=== PATIENT | female | born 1940 | race Caucasian/White ===

== ENCOUNTER → 2020-07-16 13:42 | Outpatient (BNVA) | payer MEDICARE, OTHER, SELFPAY | PROVIDERS: PCP Internal Medicine; Visit Provider Internal Medicine Cardiovascular Disease | DX: R06.02 Shortness of breath (principal); I95.1 Orthostatic hypotension; I36.1 Nonrheumatic tricuspid (valve) insufficiency; Z79.899 Other long term (current) drug therapy | CPT/HCPCS: 99212 ==

== ENCOUNTER → 2020-08-01 10:24 | Outpatient (REF) | payer MEDICARE, OTHER, SELFPAY ==
--- NOTE | 2020-08-01 10:27 | CA_ITS ---
Transthoracic Echocardiogram Patient (Last, First, Middle): Antonina Kaur, Gender: Female Date of : 1940 Age: 79 Procedure Date: 08/01/2020 Procedure Type: Transthoracic Echocardiogram Location: OP Height: 154.94 cm Weight: 51.26 kg BSA: 1.48 m2 Heart Rate: bpm BP: 157 / 72 mmHg Staff Attorney: JAI Referring MD: Benson Rodriguez MD Symptoms: I36.1 - Nonrheumatic tricuspid (valve) insufficiency Study Quality: Good ECG Rhythm: Sinus Conclusions: - The left ventricular systolic function is normal. The visually estimated ejection fraction is between 65-70%. - There is moderate tricuspid valve regurgitation. - There is moderate tricuspid valve regurgitation. Possible leaflet prolapse (non-septal). Findings Left Ventricle Normal left ventricular cavity size. There is normal left ventricular wall thickness. The left ventricular systolic function is normal. The visually estimated ejection fraction is between 65-70%. The calculated ejection fraction is 68% by biplane method. There is no evidence of regional wall motion abnormalities. Diastolic function is normal for age. Right Ventricle Normal right ventricular cavity size and systolic function. Atria The left atrium is normal in size. The right atrium is normal in size. Aortic Valve There is a normal trileaflet aortic valve. There is no aortic valve stenosis. There is no aortic valve regurgitation. Mitral Valve The mitral valve appears normal. There is mild mitral valve regurgitation. There is no mitral valve stenosis. Pulmonic Valve The pulmonic valve was not well visualized. Tricuspid Valve There is moderate tricuspid valve regurgitation. The right ventricular systolic pressure is 35 mmHg. Possible leaflet prolapse (non-septal). Top normal pulmonary artery pressure. Great Vessels The aortic annulus, sinuses of valsalva, and asc aorta are normal in size. Venous The inferior vena cava is normal in size and collapses greater than 50% with inspiration. Pericardium/Pleural There is no evidence of pericardial effusion. Prior Study Comparison No significant change compared to prior study dated: 12/12/2019. Measurements 2D Linear Measurements IVSd: 0.95 0.6-0.9/0.6-1.0 cm LVIDd: 3.38 3.9-5.3/4.2-5.9 cm LVIDd Index: 2.28 2.4-3.2/2.2-3.1 cm/m2 LVIDs: 2.12 2.0-3.6 cm LVPWd: 0.97 0.7-1.1 cm Ao Root: 2.70 2.1-3.5 cm LA Diam: 2.90 2.7-3.8/3.0-4.0 cm LAIDs Index: 1.96 1.5-2.3 cm/m2 LV Mass: 114.50 67-162/88-224 g LV Mass Index: 77.36 43-95/49-115 g/m2 LVOT Diam: 1.90 3.0+(-)1.3 cm 2D Systolic Function EF 4C: 69.50 >55% EF 2C: 65.90 >55% EF BiP: 68.00 >55% Mitral Valve MV Pk E: 0.74 MV PK A: 0.87 MV Decel Time: 211.00 E/A: 0.80 E'Lateral: 7.93 E'Medial: 5.32 E/E' Med: 13.90 E/E' Lat: 9.30 Aortic Valve AoV Pk Laith: 1.27 AoV Mn Laith: 0.93 AoV VTI: 0.30 AoV Pk Grad: 6.00 Aov Mn Grad: 4.00 ANNELISE Cont.VTI: 2.04 LVOT LVOT Pk Laith: 0.92 LVOT Mn Laith: 0.66 LVOT VTI: 0.22 LVOT Pk Grad: 3.00 LVOT Mn Grad: 2.00 LVOT Diam: 1.90 LVOT Area: 2.84 Diastolic Function MV Pk E: 0.74 MV Pk A: 0.87 E/A: 0.80 E'Medial: 5.32 E/E' Med: 13.90 E' Laterial: 7.93 E/E' Lat: 9.30 Tricuspid Valve TR Pk Laith: 2.84 TR Pk Grad: 32.00 RA Press: 3.00 RVSP: 35.00 Great Vessels Aorta Ao Root-2D: 2.70 2.0-3.7 cm Ao Asc: 2.40 2.1-3.4 cm Ao Arch: 2.50 Updated in Other Vendor System with Status of Final Prince Gabriel MD electronically signed on 08/03/2020 12:18:57 PM with status of Final
== END ==
LOC: HO.CARD 10:24
PROVIDERS: PCP Internal Medicine; Visit Provider Internal Medicine Cardiovascular Disease
DX: I36.1 Nonrheumatic tricuspid (valve) insufficiency (principal)
CPT/HCPCS: 93306

== ENCOUNTER → 2020-08-27 13:23 | Outpatient (BNVA) | payer MEDICARE, OTHER, SELFPAY | PROVIDERS: PCP Internal Medicine; Visit Provider Internal Medicine Cardiovascular Disease | DX: I16.0 Hypertensive urgency (principal); I95.1 Orthostatic hypotension; I36.1 Nonrheumatic tricuspid (valve) insufficiency; Z79.899 Other long term (current) drug therapy | CPT/HCPCS: 99212 ==

== ENCOUNTER 2020-08-27 14:09 | Emergency (ER) | payer MEDICARE, OTHER, SELFPAY ==
--- NOTE | ~2020-08-27 | CT_ITS ---
EXAMINATION: CT HEAD WITHOUT CONTRAST CLINICAL INFORMATION: Elevated hypertension with headache COMPARISON: CT brain 01/21/2020 TECHNIQUE: Contiguous axial imaging was performed from the skull base to vertex without intravenous administration of contrast. This CT examination was performed using dose optimization techniques as appropriate, variously including the following: *Automated exposure control *Adjustment of mA and/or kV according to patient size (this includes techniques or standardized protocols for targeted exams where dose is matched to indication/reason for exam; i.e. extremities or head) *Use of iterative reconstruction technique DLP: 547 mGy-cm FINDINGS: There is no evidence of acute intracranial hemorrhage or territorial infarction. No abnormal mass effect or midline shift is seen. Bruno to white matter differentiation is well preserved. No extra-axial fluid collections are identified. The lateral ventricles are symmetrical but enlarged. The bruno to white matter differentiation is maintained normal. The osseous structures and soft tissues are normal. The mastoid air cells and visualized portions of the paranasal sinuses are well aerated. CT/CT head/brain wo con IMPRESSION: No acute intracranial process seen. Moderate cerebral volume loss.
[2020-08-27 14:18] VITALS: BP 208/67; PULSE 81; RESP 18; TEMP 36.8; O2SAT 97; BMI 21.3
[2020-08-27 15:48] VITALS: BP 209/80; PULSE 85; RESP 18; O2SAT 99
[2020-08-27 18:38] VITALS: BP 222/107; PULSE 77; RESP 16; O2SAT 96
--- NOTE | 2020-08-27 18:38 | ED_ITS ---
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 losartan and atenolol which she takes around 17:00 patient was seen at the database development project manager's office as 15:00 for routine follow-up noticed to have blood pressure of 220/98 patient feels slightly heavy in her head denies any chest pain or shortness of breath Related Data Home Medications Medication Instructions Recorded Confirmed alendronate 70 mg tablet 0 mg PO DIRECTED 07/16/20 08/27/20 atenolol 50 mg tablet 50 mg PO DAILY 07/16/20 08/27/20 cholecalciferol (vitamin D3) 25 25 mcg PO DAILY 07/16/20 08/27/20 mcg (1,000 unit) tablet [id number] 1 cap PO BID 07/16/20 08/27/20 12,000-38,000-60,000 unit capsule,delayed rel losartan 100 mg tablet 100 mg PO DAILY 07/16/20 08/27/20 salsalate 500 mg tablet 1,000 mg PO BID 07/16/20 08/27/20 Previous Rx's Medication Instructions Recorded amlodipine 2.5 mg tablet 2.5 mg PO DAILY #30 tab 07/16/20 Allergies Allergy/AdvReac Type Severity Reaction Status Date / Time sulfasalazine Allergy Unknown ? RXN - ? Verified 08/27/20 14:17 [From AZULFIDINE] AFFECTED WBCS Review of Systems Review of Systems: Constitutional : No Weight loss, No Fever, No Chills ENT/Mouth : No sore throat, No Rhinorrhea Eyes: No Eye Pain, No Swelling Cardiovascular : No Chest Pain, no palpitations Respiratory : No Cough, No Sputum, no shortness of breath Gastrointestinal : no Nausea, No Vomiting, No Diarrhea, No abdominal Pain, no black stools Genitourinary : No Dysuria, No Urinary Frequency Musculoskeletal : No joint pain, No Myalgias, No Joint Swelling Skin : No Skin Lesions, No rash Neuro : No Weakness, No Numbness, No Dizziness, + Headache Psych : No Anxiety/Panic, No Depression Heme/Lymph: No Bruising, No Lymphadenopathy Endocrine : No Polyuria, No Polydipsia All other systems reviewed and are negative [facility] Past Medical History Medical History Orthostatic hypotension dysautonomic syndrome Tricuspid valve regurgitation, nonrheumatic Surgical History Hx of cardiac cath Family History Family History Father CVD (cardiovascular disease) Mother CVD (cardiovascular disease) Social History Social History Advance Directives: Yes Advance Directives Information Provided: No Advance Directives on File: No Physical Exam Vital Signs: Vital Signs: Last Vital Signs Temp 98.2 F 08/27/20 14:18 Pulse 79 08/27/20 18:56 Resp 16 08/27/20 18:38 BP 220/77 H 08/27/20 18:56 Pulse Ox 96 08/27/20 18:38 Body Mass Index 21.3 Appearance: Alert. Oriented X3. No acute distress. Eyes: PERRLA, No Nystagmus ENT: Pharynx normal. Oral Mucosa moist Neck: Normal inspection. Neck supple. CVS: Normal heart rate and rhythm. Pulses normal. Respiratory: No respiratory distress. Equal air entry bilateral, no wheezing/rales/rhonchi Abdomen: Soft and nontender. Bowel sounds are present, no mass palpable, no CVA tenderness Skin: Skin warm and dry. Normal skin color. Normal skin turgor. Extremities: No lower extremity edema. No calf tenderness Neuro: Oriented X 3. No motor deficit. No sensory deficit.No cerebellar signs , cranial nerves II-XII intact Medical Decision Making MDM Narrative Medical decision making narrative: Patient with accelerated hypertension with slight headache with history of subarachnoid bleed on arrival patient's blood pressure was 200/100 patient was given her p.m. dose of losartan and metoprolol blood pressure dropped to 160/80 patient is feeling much better now will discharge her home advised to follow with database development project manager and to take extra dose of amlodipine increased blood pressure goes higher than 160/100 Lab Data Lab results reviewed: Yes I reviewed the patient's lab results. Result diagrams: 08/27/20 19:07 08/27/20 20:04 Labs: Lab Results 08/27/20 08/27/20 08/27/20 Range/Units 19:07 20:04 20:04 WBC 7.6 (4.8-10.8) X10*3/uL RBC 4.63 (4.20-5.50) X10*6/uL Hgb 14.2 (12.0-16.0) g/dl Hct 43.6 (37-47) % MCV 94.2 (80-98) fL MCH 30.7 (27.0-33.0) pg MCHC 32.6 (31.0-35.0) g/dl RDW 14.2 (11.0-16.0) % Plt Count 171 (160-400) X10*3/uL MPV 11.4 (9.4-12.3) fL Immature Gran % (Auto) 0.4 (0.0-0.4) % Neut % (Auto) 70.0 (45-73) % Lymph % (Auto) 23.8 (20-40) % [place]row % (Auto) 5.0 (2-11) % Eos % (Auto) 0.4 (0-4) % Baso % (Auto) 0.4 (0-2) % Lymph # (Auto) 1.8 (1.2-4.9) X10*3/uL [place] # (Auto) 0.4 (0.1-1.2) X10*3/uL Eos # (Auto) 0.0 (0.0-0.4) X10*3/uL Baso # (Auto) 0.0 (0.0-0.2) X10*3/uL Abs Immat Gran (auto) 0.03 (0.00-0.03) X10*3/uL Absolute Neuts (auto) 5.3 (2.0-8.3) X10*3/uL Absolute Nucleated RBC 0.000 (0.0-0.012) X10*3/uL Nucleated RBC % (auto) 0.0 (0.0-0.2) /100WBC Sodium 143 (135-145) mmol/L Potassium 4.6 (3.3-5.1) mmol/L Chloride 106 (96-108) mmol/L Carbon Dioxide 26 (22-29) mmol/L Anion Gap 16 (12-20) BUN 15 (9-16) mg/dL Creatinine 0.80 (0.5-1.4) mg/dL Estim Creat Clear Calc 43.7 Estimated GFR > 60 Random Glucose 83 (60-115) mg/dL Calcium 9.6 (8.4-10.2) mg/dL Total Bilirubin 0.5 (0.0-1.0) mg/dL Direct Bilirubin < 0.2 (0.0-0.5) mg/dL AST 25 (5-31) U/L ALT 11 (0-31) U/L Alkaline Phosphatase 48 (39-117) U/L Total Protein 7.0 (6.5-8.0) g/dL Albumin 3.9 (3.5-5.0) g/dL ECG Data Attestation: I personally reviewed and interpreted this ECG as follows: Interpretation: Normal sinus rhythm heart rate 69 beats per minute normal intervals and axis poor progression of R-wave anterior leads T inversion in lateral leads. No significant acute ischemic changes. Discharge Plan Discharge Clinical Impression: Accelerated essential hypertension Patient Disposition: Home, Self-Care Instructions: Hypertension (ED) Additional Instructions: Rest at home. Check blood pressure if it is higher than 160/100 take extra dose of amlodipine 2.5 mg and follow up with your database development project manager Prescriptions: No Action losartan 100 mg tablet 100 mg PO DAILY RF: 0 salsalate 500 mg tablet 1,000 mg PO BID RF: 0 cholecalciferol (vitamin D3) 25 mcg (1,000 unit) tablet 25 mcg PO DAILY RF: 0 atenolol 50 mg tablet 50 mg PO DAILY RF: 0 alendronate 70 mg tablet 0 mg PO DIRECTED RF: 0 Creon 12,000-38,000 -60,000 unit capsule,delayed release(DR/EC) 1 cap PO BID RF: 0 amlodipine [Norvasc] 2.5 mg tablet 2.5 mg PO DAILY Qty: 30 RF: 3
--- NOTE | 2020-08-27 18:39 | ECG_ITS ---
Test Reason : HTN Blood Pressure : / mmHG Vent. Rate : 069 BPM Atrial Rate : 069 BPM P-R Int : 192 ms QRS Dur : 076 ms QT Int : 384 ms P-R-T Axes : 063 052 018 degrees QTc Int : 411 ms Normal sinus rhythm Septal infarct , age undetermined T wave abnormality, consider lateral ischemia Abnormal ECG When compared with ECG of 21-JAN-2020 12:55, Premature supraventricular complexes are no longer Present Referred By: Gaurav Ruth Electronically Signed By:JORGE CALDWELL
[2020-08-27 18:55] VITALS: BP 220/77; PULSE 76
[2020-08-27] MEDS: Metoprolol Tartrate 50 MG TABLET PO (18:55)
[2020-08-27 18:56] VITALS: BP 220/77; PULSE 79
[2020-08-27] MEDS: Losartan Potassium 50 MG TABLET 100 MG PO (18:56)
--- NOTE | 2020-08-27 19:06 | PC.NURSE ---
Antonina Thao, daughter, HCP can be reached at [phone] for updating the plan of care.
[2020-08-27 19:13] LABS: MANUAL DIFF FLAG NO
[2020-08-27 19:16] LABS: Basophils Percent Auto 0.4 % (0-2); Eosinophils Percent Auto 0.4 % (0-4); Hematocrit 43.6 % (37-47); Hemoglobin 14.2 g/dl (12.0-16.0); Imm Gran Abs Auto 0.03 X10*3/uL (0.00-0.03); Imm Gran Pct Auto 0.4 % (0.0-0.4); Lymphocytes Absolute Auto 1.8 X10*3/uL (1.2-4.9); Lymphocytes Percent Auto 23.8 % (20-40); Mean Corpuscular HGB Conc 32.6 g/dl (31.0-35.0); Mean Corpuscular Hemoglobin 30.7 pg (27.0-33.0); Mean Corpuscular Volume 94.2 fL (80-98); Mean Platelet Volume 11.4 fL (9.4-12.3); Monocytes Absolute Auto 0.4 X10*3/uL (0.1-1.2); Neutrophils Absolute Auto 5.3 X10*3/uL (2.0-8.3); Platelet Count 171 X10*3/uL (160-400); Red Blood Count 4.63 X10*6/uL (4.20-5.50); Red Cell Distribution Width 14.2 % (11.0-16.0); White Blood Count 7.6 X10*3/uL (4.8-10.8)
[2020-08-27 20:32] LABS: Anion Gap 16 (12-20); Blood Urea Nitrogen 15 mg/dL (9-16); Calcium 9.6 mg/dL (8.4-10.2); Carbon Dioxide 26 mmol/L (22-29); Chloride 106 mmol/L (96-108); Creatinine Clr Calc Pharmacy 43.7; Estimated Glomerular Filt Rate > 60; Glucose Random 83 mg/dL (60-115); Potassium 4.6 mmol/L (3.3-5.1); Sodium 143 mmol/L (135-145)
[2020-08-27 20:39] LABS: Alanine Aminotransferase 11 U/L (0-31); Albumin Level 3.9 g/dL (3.5-5.0); Alkaline Phosphatase 48 U/L (39-117); Aspartate Amino Transferase 25 U/L (5-31); Bilirubin Direct < 0.2 mg/dL (0.0-0.5); Bilirubin Total 0.5 mg/dL (0.0-1.0)
[2020-08-27 21:01] VITALS: BP 161/96; PULSE 64; RESP 15; TEMP 36.8; O2SAT 97
== END 2020-08-27 21:08 | disposition home or self-care (01) ==
PROVIDERS: Emergency Provider Internal Medicine; PCP Internal Medicine
DX: I10 Essential (primary) hypertension (principal)
CPT/HCPCS: 36415; 70450; 80048; 80076; 85025; 93005; 99284

== ENCOUNTER → 2020-09-26 13:06 | Outpatient (BNVA) | payer MEDICARE, OTHER, SELFPAY | PROVIDERS: PCP Internal Medicine; Visit Provider Internal Medicine Cardiovascular Disease | DX: I95.1 Orthostatic hypotension (principal); I36.1 Nonrheumatic tricuspid (valve) insufficiency | CPT/HCPCS: 99212 ==

== ENCOUNTER → 2020-10-24 14:20 | Outpatient (BNVA) | payer MEDICARE, OTHER, SELFPAY | PROVIDERS: PCP Internal Medicine; Referring Provider Internal Medicine; Visit Provider Internal Medicine Cardiovascular Disease | DX: I95.1 Orthostatic hypotension (principal); I36.1 Nonrheumatic tricuspid (valve) insufficiency | CPT/HCPCS: 99212 ==

== ENCOUNTER → 2021-01-22 09:54 | Outpatient (BNVA) | payer MEDICARE, OTHER, SELFPAY | PROVIDERS: PCP Internal Medicine; Referring Provider Internal Medicine; Visit Provider Internal Medicine Cardiovascular Disease | DX: I95.1 Orthostatic hypotension (principal); I36.1 Nonrheumatic tricuspid (valve) insufficiency | CPT/HCPCS: 99212 ==

== ENCOUNTER 2021-05-06 10:10 | Outpatient (REF) | payer MEDICARE, OTHER, SELFPAY ==
[2021-05-06 14:42] LABS: Alanine Aminotransferase 15 U/L (0-31); Albumin Level 3.6 g/dL (3.5-5.0); Alkaline Phosphatase 51 U/L (39-117); Anion Gap 12 (12-20); Aspartate Amino Transferase 19 U/L (5-31); Bilirubin Total 0.3 mg/dL (0.0-1.0); Blood Urea Nitrogen 20 mg/dL (9-16); Calcium 9.2 mg/dL (8.4-10.2); Carbon Dioxide 28 mmol/L (22-29); Chloride 105 mmol/L (96-108); Cholesterol 163 mg/dL; Estimated Glomerular Filt Rate 59; Glucose Fasting 76 mg/dL (60-99); HDL Cholesterol 59 mg/dL; LDL Cholesterol Calculated 94 mg/dl; Potassium 4.1 mmol/L (3.3-5.1); Sodium 141 mmol/L (135-145); Total Protein 6.4 g/dL (6.5-8.0); Triglycerides 52 mg/dL
== END 2021-05-06 10:11 | disposition home or self-care (01) ==
LOC: HO.10HDL 10:10
PROVIDERS: Visit Provider Internal Medicine
DX: E78.00 Pure hypercholesterolemia, unspecified (principal); I10 Essential (primary) hypertension; M06.9 Rheumatoid arthritis, unspecified
CPT/HCPCS: 36415; 80053; 80061

== ENCOUNTER → 2021-06-24 12:49 | Outpatient (REF) | payer MEDICARE, OTHER, SELFPAY ==
--- NOTE | 2021-06-24 12:53 | CA_ITS ---
Transthoracic Echocardiogram Patient (Last, First, Middle): Antonina Kaur, Gender: Female Date of : 1940 Age: 80 Procedure Date: 06/24/2021 Procedure Type: Transthoracic Echocardiogram Location: OP Height: 154.94 cm Weight: 53.07 kg BSA: 1.50 m2 Heart Rate: bpm BP: 190 / 100 mmHg Hand Brim Ironer: LUZ Referring MD: Benson Rodriguez MD Symptoms: I36.1 - Nonrheumatic tricuspid (valve) insufficiency Study Quality: Fair ECG Rhythm: Sinus Conclusions: - The left ventricular systolic function is normal. The visually estimated ejection fraction is between 60-65%. - There is moderate tricuspid valve regurgitation. The tricuspid regurgitation jet is eccentric directed toward the interatrial septum. Findings Left Ventricle Normal left ventricular cavity size. There is normal left ventricular wall thickness. The left ventricular systolic function is normal. The visually estimated ejection fraction is between 60-65%. There is no evidence of regional wall motion abnormalities. E/E prime ratio is between 8 and 15 consistent with indeterminate filling pressures. Evidence suggests grade I (mild) diastolic dysfunction. Right Ventricle Normal right ventricular cavity size and systolic function. Atria Mild biatrial enlargement. Aortic Valve The aortic valve was not well visualized. There is no aortic valve stenosis. There is no aortic valve regurgitation. Mitral Valve The mitral valve appears normal. There is mild mitral valve regurgitation. There is no mitral valve stenosis. Pulmonic Valve The pulmonic valve was not well visualized. There is trace pulmonic valve regurgitation. Tricuspid Valve The tricuspid valve was not well visualized. There is moderate tricuspid valve regurgitation. The tricuspid regurgitation jet is eccentric directed toward the interatrial septum. The pulmonary artery systolic pressure is normal. Great Vessels The aortic annulus, sinuses of valsalva, and asc aorta are normal in size. Venous The inferior vena cava is normal in size and collapses greater than 50% with inspiration. Pericardium/Pleural There is a trivial pericardial effusion. Prior Study Comparison No significant change compared to prior study dated: 12/28/2020. Measurements 2D Linear Measurements IVSd: 1.12 0.6-0.9/0.6-1.0 cm LVIDd: 3.45 3.9-5.3/4.2-5.9 cm LVIDd Index: 2.30 2.4-3.2/2.2-3.1 cm/m2 LVIDs: 2.30 2.0-3.6 cm LVPWd: 1.08 0.7-1.1 cm Ao Root: 2.60 2.1-3.5 cm LA Diam: 3.80 2.7-3.8/3.0-4.0 cm LAIDs Index: 2.53 1.5-2.3 cm/m2 LV Mass: 144.87 67-162/88-224 g LV Mass Index: 96.58 43-95/49-115 g/m2 LVOT Diam: 2.00 3.0+(-)1.3 cm Mitral Valve MV Pk E: 0.58 MV PK A: 0.67 MV Decel Time: 197.00 E/A: 0.90 E'Lateral: 4.90 E'Medial: 5.11 E/E' Med: 11.40 E/E' Lat: 11.90 PHT: 58.00 MVA PHT: 3.79 Decel [place]: 2.96 Aortic Valve AoV Pk Laith: 1.14 AoV Mn Laith: 0.79 AoV VTI: 0.24 AoV Pk Grad: 5.00 Aov Mn Grad: 3.00 ANNELISE Cont.VTI: 2.92 LVOT LVOT Pk Laith: 0.88 LVOT Mn Laith: 0.58 LVOT VTI: 0.23 LVOT Pk Grad: 3.00 LVOT Mn Grad: 2.00 LVOT Diam: 2.00 LVOT Area: 3.14 Diastolic Function MV Pk E: 0.58 MV Pk A: 0.67 E/A: 0.90 E'Medial: 5.11 E/E' Med: 11.40 E' Laterial: 4.90 E/E' Lat: 11.90 Right Ventricle TAPSE (mm): 24.00 TVS' Laith: 11.00 Tricuspid Valve TR Pk Laith: 2.58 TR Pk Grad: 27.00 Great Vessels Aorta Ao Root-2D: 2.60 2.0-3.7 cm Ao Asc: 2.70 2.1-3.4 cm Pulmonary Valve PV Pk Laith: 1.05 Peak PV Grad: 4.00 Updated in Other Vendor System with Status of Final Prince Gabriel MD electronically signed on 06/25/2021 4:21:55 PM with status of Final
== END ==
LOC: HO.CARD 12:49
PROVIDERS: PCP Internal Medicine; Visit Provider Internal Medicine Cardiovascular Disease
DX: I36.1 Nonrheumatic tricuspid (valve) insufficiency (principal)
CPT/HCPCS: 93306

== ENCOUNTER → 2021-07-17 11:10 | Outpatient (BNVA) | payer MEDICARE, OTHER, SELFPAY | PROVIDERS: PCP Internal Medicine; Referring Provider Internal Medicine; Visit Provider Internal Medicine Cardiovascular Disease | DX: Z09 Encounter for follow-up examination after completed treatment for conditions other than malignant neoplasm (principal); I95.1 Orthostatic hypotension; I36.1 Nonrheumatic tricuspid (valve) insufficiency | CPT/HCPCS: 99212 ==

== ENCOUNTER 2021-09-08 09:35 | Outpatient (REF) | payer MEDICARE, OTHER, SELFPAY ==
[2021-09-08 10:20] LABS: MANUAL DIFF FLAG NO
[2021-09-08 10:24] LABS: Basophils Percent Auto 0.6 % (0-2); Eosinophils Absolute Auto 0.2 X10*3/uL (0.0-0.4); Eosinophils Percent Auto 4.9 % (0-4); Hematocrit 37.2 % (37.0-47.0); Imm Gran Abs Auto 0.01 X10*3/uL (0.00-0.03); Imm Gran Pct Auto 0.2 % (0.0-0.4); Lymphocytes Absolute Auto 1.4 X10*3/uL (1.2-4.9); Lymphocytes Percent Auto 28.1 % (20-40); Mean Corpuscular HGB Conc 32.3 g/dl (31.0-35.0); Mean Corpuscular Hemoglobin 30.5 pg (27.0-33.0); Mean Corpuscular Volume 94.4 fL (80.0-98.0); Mean Platelet Volume 12.3 fL (9.4-12.3); Monocytes Absolute Auto 0.4 X10*3/uL (0.1-1.2); Monocytes Percent Auto 8.4 % (2-11); Neutrophils Absolute Auto 2.8 x10*3/uL (2.0-8.3); Neutrophils Percent Auto 57.8 % (45-73); Platelet Count 156 X10*3/uL (160-400); Red Blood Count 3.94 X10*6/uL (4.20-5.50); Red Cell Distribution Width 13.5 % (11.0-16.0); White Blood Count 4.9 X10*3/uL (4.8-10.8)
[2021-09-08 10:38] LABS: Alanine Aminotransferase 18 U/L (0-31); Albumin Level 3.5 g/dL (3.5-5.0); Alkaline Phosphatase 45 U/L (39-117); Anion Gap 12 (12-20); Aspartate Amino Transferase 18 U/L (5-31); Bilirubin Total 0.4 mg/dL (0.0-1.0); Blood Urea Nitrogen 25 mg/dL (9-16); Carbon Dioxide 25 mmol/L (22-29); Chloride 109 mmol/L (96-108); Cholesterol 170 mg/dL; Estimated Glomerular Filt Rate > 60; Glucose Random 87 mg/dL (60-115); HDL Cholesterol 59 mg/dL; LDL Cholesterol Calculated 103 mg/dl; Potassium 4.6 mmol/L (3.3-5.1); Sodium 141 mmol/L (135-145); Total Protein 6.3 g/dL (6.5-8.0); Triglycerides 44 mg/dL
[2021-09-08 11:04] LABS: Thyroid Stimulating Hormone 3.06 uIU/mL (0.32-4.0)
[2021-09-08 11:27] LABS: Vitamin B12 951 pg/mL (200-900)
== END 2021-09-08 09:36 | disposition home or self-care (01) ==
LOC: HO.10HDL 09:35
PROVIDERS: Visit Provider Internal Medicine
DX: E78.00 Pure hypercholesterolemia, unspecified (principal); I10 Essential (primary) hypertension; M06.9 Rheumatoid arthritis, unspecified
CPT/HCPCS: 36415; 80053; 80061; 82607; 84443; 85025

== ENCOUNTER 2022-02-10 10:18 | Outpatient (REF) | payer MEDICARE, OTHER, SELFPAY ==
[2022-02-10 12:12] LABS: Alanine Aminotransferase 17 U/L (0-31); Albumin Level 3.8 g/dL (3.5-5.0); Alkaline Phosphatase 51 U/L (39-117); Anion Gap 16 (12-20); Aspartate Amino Transferase 26 U/L (5-31); Bilirubin Total 0.4 mg/dL (0.0-1.0); Blood Urea Nitrogen 16 mg/dL (9-16); Calcium 8.7 mg/dL (8.4-10.2); Carbon Dioxide 26 mmol/L (22-29); Chloride 105 mmol/L (96-108); Estimated Glomerular Filt Rate > 60; Glucose Fasting 71 mg/dL (60-99); Potassium 4.3 mmol/L (3.3-5.1); Sodium 143 mmol/L (135-145); Total Protein 6.5 g/dL (6.5-8.0)
== END 2022-02-10 10:19 | disposition home or self-care (01) ==
LOC: HO.10HDL 10:18
PROVIDERS: Visit Provider Internal Medicine
DX: E03.9 Hypothyroidism, unspecified (principal); E78.00 Pure hypercholesterolemia, unspecified; I05.1 Rheumatic mitral insufficiency; I10 Essential (primary) hypertension
CPT/HCPCS: 36415; 80053

== ENCOUNTER 2022-04-07 14:26 | Outpatient (REF) | payer MEDICARE, OTHER, SELFPAY ==
[2022-04-07 16:25] LABS: B Type Natriuretic Peptide 255 pg/mL (<100)
[2022-04-07 16:42] LABS: Anion Gap 14 (12-20); Blood Urea Nitrogen 19 mg/dL (9-16); Calcium 9.5 mg/dL (8.4-10.2); Carbon Dioxide 28 mmol/L (22-29); Chloride 105 mmol/L (96-108); Estimated Glomerular Filt Rate > 60; Glucose Random 80 mg/dL (60-115); Potassium 4.6 mmol/L (3.3-5.1); Sodium 142 mmol/L (135-145)
== END 2022-04-07 14:27 | disposition home or self-care (01) ==
LOC: HO.LAB 14:26
PROVIDERS: PCP Internal Medicine; Visit Provider Internal Medicine Cardiovascular Disease
DX: I36.1 Nonrheumatic tricuspid (valve) insufficiency (principal); I95.1 Orthostatic hypotension; R60.0 Localized edema; Z79.899 Other long term (current) drug therapy
CPT/HCPCS: 36415; 80048; 83880; 99212

== ENCOUNTER → 2022-04-10 12:49 | Outpatient (REF) | payer MEDICARE, OTHER, SELFPAY ==
--- NOTE | 2022-04-10 12:53 | CA_ITS ---
Transthoracic Echocardiogram Patient (Last, First, Middle): Antonina Kaur, Gender: Female Date of : 1940 Age: 81 Procedure Date: 04/10/2022 Procedure Type: Transthoracic Echocardiogram Location: OP Height: 154.94 cm Weight: 51.71 kg BSA: 1.49 m2 Heart Rate: bpm BP: 170 / 85 mmHg Pizza Chef: TO Referring MD: Benson Rodriguez MD Symptoms: I36.1 - Nonrheumatic tricuspid (valve) insufficiency Study Quality: Fair ECG Rhythm: Sinus Conclusions: - The left ventricular systolic function is normal. The visually estimated ejection fraction is between 65-70%. - There is moderately increased left ventricular wall thickness. - There is mild to moderate tricuspid valve regurgitation. Findings Left Ventricle Normal left ventricular cavity size. There is moderately increased left ventricular wall thickness. The left ventricular systolic function is normal. The visually estimated ejection fraction is between 65-70%. There is no evidence of regional wall motion abnormalities. Diastolic function is normal for age. Right Ventricle Normal right ventricular cavity size and systolic function. Atria The left atrium is moderately dilated. The right atrium is normal in size. Aortic Valve There is a normal trileaflet aortic valve. There is no aortic valve stenosis. There is no aortic valve regurgitation. Mitral Valve The mitral valve appears normal. There is mild mitral valve regurgitation. There is no mitral valve stenosis. Pulmonic Valve There is trace pulmonic valve regurgitation. Tricuspid Valve Normal tricuspid valve structure. There is mild to moderate tricuspid valve regurgitation. There is no evidence of pulmonary hypertension. Great Vessels The asc aorta is normal in size. Venous The inferior vena cava is mildly dilated and collapses greater than 50% with inspiration. Pericardium/Pleural There is a trivial pericardial effusion. Prior Study Comparison No significant change compared to prior study dated: 06/24/2021. Measurements 2D Linear Measurements IVSd: 1.33 0.6-0.9/0.6-1.0 cm LVIDd: 3.13 3.9-5.3/4.2-5.9 cm LVIDd Index: 2.10 2.4-3.2/2.2-3.1 cm/m2 LVIDs: 1.90 2.0-3.6 cm LVPWd: 1.26 0.7-1.1 cm LA Diam: 3.10 2.7-3.8/3.0-4.0 cm LAIDs Index: 2.08 1.5-2.3 cm/m2 LV Mass: 162.74 67-162/88-224 g LV Mass Index: 109.22 43-95/49-115 g/m2 LVOT Diam: 1.80 3.0+(-)1.3 cm 2D Systolic Function EF 4C: 65.50 >55% EF 2C: 63.20 >55% EF BiP: 64.40 >55% Mitral Valve MV Pk E: 0.65 MV PK A: 0.72 MV Decel Time: 235.00 E/A: 0.90 E'Lateral: 6.74 E'Medial: 4.35 E/E' Med: 14.90 E/E' Lat: 9.60 PHT: 69.00 MVA PHT: 3.19 Decel [place]: 2.75 Aortic Valve AoV Pk Laith: 1.16 AoV Mn Laith: 0.89 AoV VTI: 0.27 AoV Pk Grad: 5.00 Aov Mn Grad: 3.00 ANNELISE Cont.VTI: 1.77 LVOT LVOT Pk Laith: 0.83 LVOT Mn Laith: 0.57 LVOT VTI: 0.19 LVOT Pk Grad: 3.00 LVOT Mn Grad: 1.00 LVOT Diam: 1.80 LVOT Area: 2.54 Diastolic Function MV Pk E: 0.65 MV Pk A: 0.72 E/A: 0.90 E'Medial: 4.35 E/E' Med: 14.90 E' Laterial: 6.74 E/E' Lat: 9.60 Right Ventricle TAPSE (mm): 24.60 TVS' Laith: 9.79 Tricuspid Valve TR Pk Laith: 2.63 TR Pk Grad: 28.00 RA Press: 8.00 RVSP: 36.00 Great Vessels Aorta Sinus of Valsalva: 2.81 2.0-3.5 cm Ao Asc: 2.70 2.1-3.4 cm Updated in Other Vendor System with Status of Final Prince Gabriel MD electronically signed on 04/11/2022 1:27:48 PM with status of Final
== END ==
LOC: HO.CARD 12:49
PROVIDERS: PCP Internal Medicine; Visit Provider Internal Medicine Cardiovascular Disease
DX: I36.1 Nonrheumatic tricuspid (valve) insufficiency (principal)
CPT/HCPCS: 93306

== ENCOUNTER 2022-04-16 13:10 | Outpatient (REF) | payer MEDICARE, OTHER, SELFPAY ==
[2022-04-16 15:36] LABS: B Type Natriuretic Peptide 172 pg/mL (<100)
== END 2022-04-16 13:11 | disposition home or self-care (01) ==
LOC: HO.LAB 13:10
PROVIDERS: PCP Internal Medicine; Visit Provider Internal Medicine Cardiovascular Disease
DX: R06.02 Shortness of breath (principal)
CPT/HCPCS: 36415; 83880

== ENCOUNTER 2022-05-26 09:44 | Outpatient (REF) | payer MEDICARE, OTHER, SELFPAY ==
[2022-05-26 11:39] LABS: B Type Natriuretic Peptide 237 pg/mL (<100)
[2022-05-26 11:52] LABS: Anion Gap 15 (12-20); Blood Urea Nitrogen 21 mg/dL (9-16); Carbon Dioxide 27 mmol/L (22-29); Chloride 106 mmol/L (96-108); Estimated Glomerular Filt Rate 58; Glucose Random 93 mg/dL (60-115); Potassium 4.1 mmol/L (3.3-5.1); Sodium 144 mmol/L (135-145)
== END 2022-05-26 09:45 | disposition home or self-care (01) ==
LOC: HO.LAB 09:44
PROVIDERS: PCP Internal Medicine; Referring Provider Internal Medicine; Visit Provider Internal Medicine Cardiovascular Disease
DX: I50.30 Unspecified diastolic (congestive) heart failure (principal); R09.89 Other specified symptoms and signs involving the circulatory and respiratory systems
CPT/HCPCS: 36415; 80048; 83880; 99212

== ENCOUNTER 2022-06-03 11:49 | Outpatient (REF) | payer MEDICARE, OTHER, SELFPAY ==
[2022-06-03 13:47] LABS: Anion Gap 18 (12-20); Blood Urea Nitrogen 36 mg/dL (9-16); Calcium 9.9 mg/dL (8.4-10.2); Carbon Dioxide 23 mmol/L (22-29); Chloride 104 mmol/L (96-108); Estimated Glomerular Filt Rate 33; Glucose Random 99 mg/dL (60-115); Potassium 4.2 mmol/L (3.3-5.1); Sodium 141 mmol/L (135-145)
[2022-06-03 13:53] LABS: B Type Natriuretic Peptide 149 pg/mL (<100)
== END 2022-06-03 11:50 | disposition home or self-care (01) ==
LOC: HO.LAB 11:49
PROVIDERS: PCP Internal Medicine; Visit Provider Internal Medicine Cardiovascular Disease
DX: I50.30 Unspecified diastolic (congestive) heart failure (principal)
CPT/HCPCS: 36415; 80048; 83880

== ENCOUNTER 2022-06-12 12:13 | Outpatient (REF) | payer MEDICARE, OTHER, SELFPAY ==
[2022-06-12 13:19] LABS: Anion Gap 17 (12-20); Blood Urea Nitrogen 36 mg/dL (9-16); Calcium 8.2 mg/dL (8.4-10.2); Carbon Dioxide 21 mmol/L (22-29); Chloride 111 mmol/L (96-108); Estimated Glomerular Filt Rate 31; Glucose Random 76 mg/dL (60-115); Potassium 4.9 mmol/L (3.3-5.1); Sodium 144 mmol/L (135-145)
[2022-06-12 13:25] LABS: B Type Natriuretic Peptide 432 pg/mL (<100)
== END 2022-06-12 12:14 | disposition home or self-care (01) ==
LOC: HO.LAB 12:13
PROVIDERS: PCP Internal Medicine; Visit Provider Internal Medicine Cardiovascular Disease
DX: I50.30 Unspecified diastolic (congestive) heart failure (principal)
CPT/HCPCS: 36415; 80048; 83880

== ENCOUNTER 2022-07-27 09:32 | Outpatient (REF) | payer MEDICARE, OTHER, SELFPAY ==
[2022-07-27 10:28] LABS: MANUAL DIFF FLAG NO
[2022-07-27 10:32] LABS: Basophils Absolute Auto 0.1 X10*3/uL (0.0-0.2); Basophils Percent Auto 1.2 % (0-2); Eosinophils Absolute Auto 0.2 X10*3/uL (0.0-0.4); Eosinophils Percent Auto 4.3 % (0-4); Hematocrit 40.6 % (37.0-47.0); Hemoglobin 13.3 g/dl (12.0-16.0); Imm Gran Abs Auto 0.01 X10*3/uL (0.00-0.03); Imm Gran Pct Auto 0.2 % (0.0-0.4); Lymphocytes Absolute Auto 1.5 X10*3/uL (1.2-4.9); Lymphocytes Percent Auto 35.5 % (20-40); Mean Corpuscular HGB Conc 32.8 g/dl (31.0-35.0); Mean Corpuscular Hemoglobin 30.3 pg (27.0-33.0); Mean Corpuscular Volume 92.5 fL (80.0-98.0); Mean Platelet Volume 11.8 fL (9.4-12.3); Monocytes Absolute Auto 0.4 X10*3/uL (0.1-1.2); Monocytes Percent Auto 8.3 % (2-11); Neutrophils Absolute Auto 2.1 x10*3/uL (2.0-8.3); Neutrophils Percent Auto 50.5 % (45-73); Platelet Count 172 X10*3/uL (160-400); Red Blood Count 4.39 X10*6/uL (4.20-5.50); White Blood Count 4.2 X10*3/uL (4.8-10.8)
[2022-07-27 10:58] LABS: Alanine Aminotransferase 15 U/L (0-31); Alkaline Phosphatase 47 U/L (39-117); Anion Gap 15 (12-20); Aspartate Amino Transferase 22 U/L (5-31); Bilirubin Total 0.5 mg/dL (0.0-1.0); Blood Urea Nitrogen 26 mg/dL (9-16); Calcium 9.5 mg/dL (8.4-10.2); Carbon Dioxide 27 mmol/L (22-29); Chloride 106 mmol/L (96-108); Cholesterol 193 mg/dL; Estimated Glomerular Filt Rate 36; Glucose Fasting 93 mg/dL (60-99); HDL Cholesterol 65 mg/dL; LDL Cholesterol Calculated 118 mg/dl; Potassium 4.6 mmol/L (3.3-5.1); Sodium 143 mmol/L (135-145); Total Protein 6.9 g/dL (6.5-8.0); Triglycerides 53 mg/dL
== END 2022-07-27 09:33 | disposition home or self-care (01) ==
LOC: HO.10HDL 09:32
PROVIDERS: Visit Provider Internal Medicine
DX: I05.1 Rheumatic mitral insufficiency (principal); I10 Essential (primary) hypertension; R05.3 Chronic cough
CPT/HCPCS: 36415; 80053; 80061; 85025

== ENCOUNTER → 2022-08-25 15:09 | Outpatient (BNVA) | payer MEDICARE, OTHER, SELFPAY | PROVIDERS: PCP Internal Medicine; Referring Provider Internal Medicine; Visit Provider Internal Medicine Cardiovascular Disease | DX: I50.30 Unspecified diastolic (congestive) heart failure (principal); I36.1 Nonrheumatic tricuspid (valve) insufficiency; R09.89 Other specified symptoms and signs involving the circulatory and respiratory systems | CPT/HCPCS: 99212 ==

== ENCOUNTER 2022-11-02 08:50 | Outpatient (AMB) | payer MEDICARE, OTHER, SELFPAY ==
[2022-11-02 08:53] VITALS: BP 100/50; PULSE 67; O2SAT 96
--- NOTE | 2022-11-02 08:53 | MHC.OFFVIS ---
Intake Vital Signs 11/02/22 08:53 Height 5 ft 1 in Weight 105 lb 13.15 oz BMI 20.0 BP 100/50 L Blood Pressure Location Lt brachial Position Sitting Pulse 67 Pulse Oximetry (%) 96 Intake Visit Reasons: follow-up hospital dc med changes Intake Note: follow up dc med changes Manager Philosophy Required: No Allergies sulfasalazine [From AZULFIDINE] Allergy (Unknown, Verified 11/02/22 09:03) ? RXN - ? AFFECTED WBCS Medication List - Last Reconciled 11/02/22 by LEONOR Kurtz adalimumab (Humira Pen) mg subcut albuterol sulfate 90 mcg/actuation 2 puffs inhalation Q6H PRN amoxicillin-pot clavulanate 875-125 mg 1 tab PO BID cholecalciferol (vitamin D3) 25 mcg PO DAILY cyanocobalamin (vitamin B-12) (Vitamin B-12) 1,000 mcg PO DAILY empagliflozin (Jardiance) 10 mg PO DAILY fluticasone propionate 44 mcg/actuation (Flovent HFA) 2 puffs inhalation BID furosemide (Lasix) 20 mg PO Q OTHER DAY 90 days hydralazine 10 mg PO ONCE PRN labetalol 100 mg PO BID 90 days [id number] 12,000-38,000 -60,000 unit (Creon) 1 cap PO BID omeprazole 20 mg PO DAILY pravastatin 40 mg PO DAILY salsalate 1,000 mg PO BID spironolactone 25 mg PO DAILY 90 days valsartan 160 mg PO DAILY HPI follow-up hospital dc med changes HPI Details Antonina is an 81-year-old female with past medical history labile hypertension, orthostatic hypotension disorder non max syndrome, tricuspid regurgitation, heart failure with preserved EF, subarachnoid hemorrhage in the setting of hypertensive emergenc who was recently admitted to [facility] for altered mental status, KOFFI, fever, abdominal discomfort, failure to thrive. She did undergo some medication adjustments and now presents for follow-up. Today she reports that she is still experiencing intermittent episodes of abdominal discomfort. Her daughter is present states that she did have a small leak in her bowel that sealed on its own. They are seeing the surgeon tomorrow in follow-up. She reports having intermittent nausea and abdominal pains after eating. She denies pain at present time. No chest discomfort at rest or with activity. No shortness of breath, palpitations, presyncope, syncope, falls. She does have some dizziness with position changes. No presyncope, syncope. Taking meds as directed. She has been taking Lasix daily and drinking around 60 oz of fluid daily but tells me she is voiding very frequently. She reports being up 5-6 times each night. Has visiting nurse at present. Home blood pressures have been running on low side with systolic into the 90s low 100s. [facility] Medical History Orthostatic hypotension dysautonomic syndrome Subarachnoid hemorrhage Tricuspid valve regurgitation, nonrheumatic Surgical History Hx of cardiac cath Family History Father CVD (cardiovascular disease) Mother CVD (cardiovascular disease) Review of Systems Const All systems reviewed & are unremarkable except as noted in HPI and below ENT Reports dizziness Card Denies chest pain, Denies chest pain at rest, Denies chest pain with activity, Denies rapid heart rate, Denies pedal edema, Denies edema, Denies leg edema, Denies lightheadedness, Denies palpitations, Denies dyspnea, Denies dyspnea on exertion and Denies orthopnea Resp Denies cough, Denies dyspnea and Denies dyspnea on exertion GI Denies hematochezia and Denies change in stool character Musc Denies abnormal gait, Reports limited range of motion, Reports muscle cramps, Denies muscle weakness, Denies numbness, Denies radiating pain into limb, Denies stiffness and Denies tingling Neuro Denies abnormal gait, Reports dizziness, Denies numbness and Denies tingling Endo Denies palpitations Physical Exam Vital Signs: Last Vital Signs Pulse 67 11/02/22 08:53 BP 100/50 L 11/02/22 08:53 Pulse Ox 96 11/02/22 08:53 BMI result Body Mass Index 20.0 BP recheck done by me, sitting 118/48, standing 98/46 Const General: cooperative, healthy appearing, comfortable and no acute distress Orientation/consciousness: patient oriented x3 Neck Neck: Yes normal visual inspection Resp Effort & Inspection: normal respiratory effort Auscultation: clear to auscultation bilaterally, no crackles, no rales, no rhonchi and no wheezes Cardio Jugular venous distension: no JVD Rate: regular rate Rhythm: regular rhythm Heart sounds: S1 normal heart sound present, S2 normal heart sound present, no murmurs and no rubs Neuro General: patient oriented x3 Extrem General: Yes normal to inspection Psych Appearance: grossly normal Mental Status: mental status grossly normal Speech and movement: Normal speech and movement present Assessment & Plan Assessment & Plan (1) Hospital discharge follow-up: Code(s): Z09 - Encounter for follow-up examination after completed treatment for conditions other than malignant neoplasm Plan: [place] [facility] [place] discomfort, fever, KOFFI, failure to thrive. Managed medically. Daughter reports that she had a small leak in her bowel that sealed on its own. She has follow-up with the surgeon tomorrow. She continues to report symptoms of intermittent abdominal discomfort and nausea. She has a poor appetite but tells me she has been drinking around 60 oz daily. Hospital discharge notes indicate that her Lasix is 20 mg daily. She is questioning this dose. Blood pressure is running low on this visit. She is noted to be orthostatic. Will reduce her Lasix down to every other day. (2) Labile blood pressure: Code(s): R09.89 - Other specified symptoms and signs involving the circulatory and respiratory systems Plan: History of labile blood pressure with orthostatic hypotension and hypertension emergency in the past with subarachnoid hemorrhage. She is currently maintained on valsartan, Lasix, labetalol, spironolactone. Home blood pressure is currently running on the low side. Will have her change Lasix to every other day which is what she had been on prior to her recent hospital admission. Most recent labs done on 10/13/2022 showed potassium 4.2, BUN 9, creatinine 0.9. Her creatinine had been as high as 1.2 on admission 10/11/2022. (3) (HFpEF) heart failure with preserved ejection fraction: Code(s): I50.30 - Unspecified diastolic (congestive) heart failure Plan: No clinical signs of decompensated heart failure on examination today. Last echocardiogram done 04/10/2022 showing EF 65-70%, moderate increase in the LV wall thickness, [id number] TR. Signs and symptoms of heart failure reviewed. She is currently drinking good volume as well as taking low-dose diuretic. Continues to follow low-salt diet. (4) Tricuspid valve regurgitation, nonrheumatic: Code(s): I36.1 - Nonrheumatic tricuspid (valve) insufficiency Plan: [id number] TR on last echo. (5) Orthostatic hypotension dysautonomic syndrome: Code(s): I95.1 - Orthostatic hypotension Plan: As above Coding Level of Care Code Est Pt Level 4 (97314) Diagnoses Hospital discharge follow-up Z09 Labile blood pressure R09.89 (HFpEF) heart failure with preserved ejection fraction I50.30 Tricuspid valve regurgitation, nonrheumatic I36.1 Orthostatic hypotension dysautonomic syndrome I95.1 Time Spent (min) 26 Comment Chart review, documentation, interview, assessment
== END 2022-11-02 10:03 | disposition home or self-care (01) ==
PROVIDERS: PCP Internal Medicine; Visit Provider Nurse Practitioner Family
DX: Z09 Encounter for follow-up examination after completed treatment for conditions other than malignant neoplasm (principal); R09.89 Other specified symptoms and signs involving the circulatory and respiratory systems; I50.30 Unspecified diastolic (congestive) heart failure; I36.1 Nonrheumatic tricuspid (valve) insufficiency; I95.1 Orthostatic hypotension
CPT/HCPCS: 99214

== ENCOUNTER → 2022-11-02 08:50 | Outpatient (BNVA) | payer MEDICARE, OTHER, SELFPAY | PROVIDERS: PCP Internal Medicine; Visit Provider Nurse Practitioner Family | DX: I95.1 Orthostatic hypotension (principal); I36.1 Nonrheumatic tricuspid (valve) insufficiency; I11.0 Hypertensive heart disease with heart failure; I50.30 Unspecified diastolic (congestive) heart failure; Z98.890 Other specified postprocedural states; Z09 Encounter for follow-up examination after completed treatment for conditions other than malignant neoplasm | CPT/HCPCS: 99212 ==

== ENCOUNTER 2023-03-10 09:06 | Outpatient (REF) | payer MEDICARE, OTHER, SELFPAY ==
[2023-03-10 10:29] LABS: MANUAL DIFF FLAG NO
[2023-03-10 10:37] LABS: Basophils Percent Auto 0.7 % (0-2); Eosinophils Absolute Auto 0.2 X10*3/uL (0.0-0.4); Hematocrit 38.2 % (37.0-47.0); Hemoglobin 12.1 g/dl (12.0-16.0); Lymphocytes Absolute Auto 1.6 X10*3/uL (1.2-4.9); Lymphocytes Percent Auto 34.4 % (20-40); Mean Corpuscular HGB Conc 31.7 g/dl (31.0-35.0); Mean Corpuscular Hemoglobin 30.4 pg (27.0-33.0); Mean Platelet Volume 11.8 fL (9.4-12.3); Monocytes Absolute Auto 0.4 X10*3/uL (0.1-1.2); Neutrophils Absolute Auto 2.4 x10*3/uL (2.0-8.3); Neutrophils Percent Auto 52.9 % (45-73); Platelet Count 150 X10*3/uL (160-400); Red Blood Count 3.98 X10*6/uL (4.20-5.50); Red Cell Distribution Width 14.5 % (11.0-16.0); White Blood Count 4.5 X10*3/uL (4.8-10.8)
[2023-03-10 10:48] LABS: Alanine Aminotransferase 9 U/L (0-31); Albumin Level 3.7 g/dL (3.5-5.0); Alkaline Phosphatase 55 U/L (39-117); Anion Gap 14 (12-20); Aspartate Amino Transferase 19 U/L (5-31); Bilirubin Total 0.1 mg/dL (0.0-1.0); Blood Urea Nitrogen 25 mg/dL (9-16); Calcium 8.8 mg/dL (8.4-10.2); Carbon Dioxide 23 mmol/L (22-29); Chloride 113 mmol/L (96-108); Estimated Glomerular Filt Rate 41; Glucose Random 84 mg/dL (60-115); Potassium 4.5 mmol/L (3.3-5.1); Sodium 145 mmol/L (135-145); Total Protein 6.7 g/dL (6.5-8.0)
== END 2023-03-10 09:07 | disposition home or self-care (01) ==
LOC: HO.10HDL 09:06
PROVIDERS: Visit Provider Internal Medicine
DX: I11.0 Hypertensive heart disease with heart failure (principal); I50.42 Chronic combined systolic (congestive) and diastolic (congestive) heart failure; R10.9 Unspecified abdominal pain; R19.7 Diarrhea, unspecified
CPT/HCPCS: 36415; 80053; 85025

== ENCOUNTER 2023-03-25 14:53 | Outpatient (AMB) | payer MEDICARE, OTHER, SELFPAY ==
--- NOTE | 2023-03-25 15:04 | MHC.OFFVIS ---
Intake Vital Signs 03/25/23 15:12 Height 5 ft 1 in Weight 112 lb 6.972 oz BMI 21.2 BP 130/82 Blood Pressure Location Lt brachial Position Sitting Pulse 68 Intake Visit Reasons: 6 mth f/up Intake Note: 6 month follow-up with ekg feeling ok feel like thinkgs are hard to do activities bp has been good at home Waste Water Worker Required: No Allergies sulfasalazine [From AZULFIDINE] Allergy (Unknown, Verified 11/02/22 09:03) ? RXN - ? AFFECTED WBCS Medication List - Last Reconciled 03/25/23 by Benson Rodriguez MD adalimumab (Humira Pen) mg subcut cholecalciferol (vitamin D3) 25 mcg PO DAILY cyanocobalamin (vitamin B-12) (Vitamin B-12) 1,000 mcg PO DAILY empagliflozin (Jardiance) 10 mg PO DAILY furosemide (Lasix) 20 mg PO Q OTHER DAY 90 days hydralazine 10 mg PO ONCE PRN labetalol 100 mg PO BID [id number] 12,000-38,000 -60,000 unit (Creon) 1 cap PO BID omeprazole 20 mg PO DAILY pravastatin 40 mg PO DAILY salsalate 1,000 mg PO BID spironolactone 25 mg PO DAILY 90 days valsartan 160 mg PO DAILY HPI HPI Comments History of Present Illness Details Antonina comes for follow-up. Overall she has been doing well. Her is now in care home facility and her PET recently . However emotional issues doing better with less anxiety. She has been able to take care of herself and her blood pressure is much better control. She says up to systolic 140. She has not had any hypotensive episodes. She denies any orthostatic lightheadedness. Denies any exertional chest pain or worsening shortness of breath. No orthopnea, PND, leg edema. No neurologic symptoms. [facility] Medical History Subarachnoid hemorrhage Tricuspid valve regurgitation, nonrheumatic Orthostatic hypotension dysautonomic syndrome Surgical History Hx of cardiac cath Family History Father CVD (cardiovascular disease) Mother CVD (cardiovascular disease) Review of Systems Const Denies chills, Denies fatigue, Denies fever(s), Denies frequent falls, Denies weakness, Denies weight gain and Denies weight loss ENT Denies dizziness Card Denies chest pain, Denies leg edema, Denies lightheadedness, Denies palpitations, Denies dyspnea, Denies dyspnea on exertion, Denies orthopnea and Denies other (loss of consciousness) Resp Denies cough, Denies dyspnea and Denies dyspnea on exertion GI Denies hematochezia and Denies change in stool character Musc Denies abnormal gait, Denies muscle weakness, Denies numbness, Denies radiating pain into limb and Denies tingling Neuro Denies abnormal gait, Denies dizziness, Denies frequent falls, Denies numbness, Denies tingling and Denies weakness Endo Denies fatigue and Denies palpitations Physical Exam Vital Signs: Last Vital Signs Pulse 68 03/25/23 15:12 BP 130/82 03/25/23 15:12 BMI result Body Mass Index 21.2 BP recheck done by me, sitting 118/48, standing 98/46 Const General: cooperative, healthy appearing, comfortable and no acute distress Orientation/consciousness: patient oriented x3 Neck Neck: Yes normal visual inspection Resp Effort & Inspection: normal respiratory effort Auscultation: clear to auscultation bilaterally, no crackles, no rales, no rhonchi and no wheezes Cardio Jugular venous distension: no JVD Rate: regular rate Rhythm: regular rhythm Heart sounds: S1 normal heart sound present, S2 normal heart sound present, no murmurs and no rubs Neuro General: patient oriented x3 Extrem General: Yes normal to inspection Psych Appearance: grossly normal Mental Status: mental status grossly normal Speech and movement: Normal speech and movement present Office Procedures EKG Details: EKG shows normal sinus rhythm with suggestion of LVH with repolarization abnormality [id number]-[id number], Complete Assessment & Plan Assessment & Plan (1) (HFpEF) heart failure with preserved ejection fraction: Code(s): I50.30 - Unspecified diastolic (congestive) heart failure Plan: Heart failure preserved ejection fraction, clinically euvolemic and well compensated with no signs of fluid overload. Advised to continue current therapy with alternate days of Lasix as well as Jardiance. Importance of management of heart failure were discussed. Importance of good control blood pressure was discussed. Advised to participate in physical activity to improve her symptoms exertional shortness of breath. Low-salt diet was discussed daily weight monitoring was discussed. She understands agrees. Advised to call me with worsening (2) Labile blood pressure: Code(s): R09.89 - Other specified symptoms and signs involving the circulatory and respiratory systems Plan: Markedly labile blood pressure with lot of her high blood pressure related to anxiety episodes and stress related to taking care of her and her PET. Advised to participate in stress mitigation strategies and take care of herself. Current regimen of medications are working well for her. Advised to continue the same. Goal blood pressure up to systolic 140. She understands management well. Low-salt diet was discussed. Will follow up in the clinic in 6 months time, sooner p.r.n.. Thank you for allowing me to partake in her care Medications: Changed From labetalol Take 1 tablet in the morning and 2 tablets in the evening. 100 mg PO DIRECTED 270 tabs 3RF To labetalol 100 mg PO BID Coding Level of Care Code Est Pt Level 4 (74397) Diagnoses (HFpEF) heart failure with preserved ejection fraction I50.30 Labile blood pressure R09.89 CPT Codes EKG - CPT: 44469-[id number], Complete ([id number])
[2023-03-25 15:12] VITALS: BP 130/82; PULSE 68; BMI 21.2
== END 2023-03-25 15:41 | disposition home or self-care (01) ==
PROVIDERS: Visit Provider Internal Medicine Cardiovascular Disease
DX: I50.30 Unspecified diastolic (congestive) heart failure (principal); R09.89 Other specified symptoms and signs involving the circulatory and respiratory systems
CPT/HCPCS: 93010; 99214

== ENCOUNTER → 2023-03-25 14:53 | Outpatient (BNVA) | payer MEDICARE, OTHER, SELFPAY | PROVIDERS: Visit Provider Internal Medicine Cardiovascular Disease | DX: I50.30 Unspecified diastolic (congestive) heart failure (principal); R09.89 Other specified symptoms and signs involving the circulatory and respiratory systems | CPT/HCPCS: 93005; 99212 ==

== ENCOUNTER 2023-09-02 08:33 | Outpatient (REF) | payer MEDICARE, OTHER, SELFPAY ==
[2023-09-02 11:16] LABS: MANUAL DIFF FLAG NO
[2023-09-02 11:26] LABS: Basophils Percent Auto 0.8 % (0-2); Eosinophils Absolute Auto 0.2 X10*3/uL (0.0-0.4); Eosinophils Percent Auto 4.4 % (0-4); Hematocrit 37.8 % (37.0-47.0); Hemoglobin 12.5 g/dl (12.0-16.0); Imm Gran Abs Auto 0.02 X10*3/uL (0.00-0.03); Imm Gran Pct Auto 0.4 % (0.0-0.4); Lymphocytes Absolute Auto 1.6 X10*3/uL (1.2-4.9); Lymphocytes Percent Auto 32.6 % (20-40); Mean Corpuscular HGB Conc 33.1 g/dl (31.0-35.0); Mean Corpuscular Hemoglobin 31.3 pg (27.0-33.0); Mean Corpuscular Volume 94.7 fL (80.0-98.0); Mean Platelet Volume 12.3 fL (9.4-12.3); Monocytes Absolute Auto 0.4 X10*3/uL (0.1-1.2); Monocytes Percent Auto 7.4 % (2-11); Neutrophils Absolute Auto 2.6 x10*3/uL (2.0-8.3); Neutrophils Percent Auto 54.4 % (45-73); Platelet Count 160 X10*3/uL (160-400); Red Blood Count 3.99 X10*6/uL (4.20-5.50); Red Cell Distribution Width 13.2 % (11.0-16.0); White Blood Count 4.8 X10*3/uL (4.8-10.8)
[2023-09-02 12:20] LABS: Alanine Aminotransferase 13 U/L (0-31); Albumin Level 3.8 g/dL (3.5-5.0); Alkaline Phosphatase 49 U/L (39-117); Anion Gap 16 (12-20); Aspartate Amino Transferase 20 U/L (5-31); Bilirubin Total 0.3 mg/dL (0.0-1.0); Blood Urea Nitrogen 23 mg/dL (9-16); Calcium 9.2 mg/dL (8.4-10.2); Carbon Dioxide 23 mmol/L (22-29); Chloride 106 mmol/L (96-108); Cholesterol 175 mg/dL (<200); Estimated Glomerular Filt Rate 46; Glucose Random 90 mg/dL (60-115); HDL Cholesterol 60 mg/dL (>40); LDL Cholesterol Calculated 104 mg/dL (<100); Potassium 4.3 mmol/L (3.3-5.1); Sodium 141 mmol/L (135-145); Triglycerides 59 mg/dL (<150)
== END 2023-09-02 08:34 | disposition home or self-care (01) ==
LOC: HO.10HDL 08:33
PROVIDERS: Visit Provider Internal Medicine
DX: D69.6 Thrombocytopenia, unspecified (principal); I11.0 Hypertensive heart disease with heart failure; I50.42 Chronic combined systolic (congestive) and diastolic (congestive) heart failure; M06.9 Rheumatoid arthritis, unspecified; R10.9 Unspecified abdominal pain
CPT/HCPCS: 36415; 80053; 80061; 85025

== ENCOUNTER 2023-10-19 14:43 | Outpatient (AMB) | payer MEDICARE, OTHER, SELFPAY ==
[2023-10-19 15:06] VITALS: BP 138/74; PULSE 101; BMI 21.2
--- NOTE | 2023-10-19 15:06 | MHC.OFFVIS ---
Vital Signs 10/19/23 15:06 Height 5 ft 1 in Weight 112 lb 6.972 oz BMI 21.2 BP 138/74 Blood Pressure Location Lt brachial Position Sitting Pulse 101 H Intake Visit Reasons: 6 mth fu Intake Note: 6 month follow-up c/o heaviness in chest with stabbing pain at times Aircraft Body Repairer Required: No Vehicle Monitor Technician: Vehicle Monitor Technician Present Accompanied by: Family/Other Allergies sulfasalazine [From AZULFIDINE] Allergy (Unknown, Verified 11/02/22 09:03) ? RXN - ? AFFECTED WBCS Medication List - Last Reconciled 10/19/23 by Benson Rodriguez MD adalimumab (Humira Pen) mg subcut cholecalciferol (vitamin D3) 25 mcg PO DAILY cyanocobalamin (vitamin B-12) (Vitamin B-12) 1,000 mcg PO DAILY empagliflozin (Jardiance) 10 mg PO DAILY furosemide (Lasix) 20 mg PO Q OTHER DAY 90 days hydralazine 10 mg PO ONCE PRN labetalol 100 mg PO BID [id number] 12,000-38,000 -60,000 unit (Creon) 1 cap PO BID omeprazole 20 mg PO DAILY pravastatin 40 mg PO DAILY salsalate 1,000 mg PO BID spironolactone 25 mg PO DAILY valsartan 160 mg PO DAILY HPI Comments Details: Antonina comes for follow-up, accompanied by her daughter. Over the last several months she has been having episodes of lightheadedness with recorded low blood pressure at home in the 80s. He has not had actual syncopal episode as she catches herself unusually lowered herself to the ground. I have most of a blood pressure now ranging in 100 to 110 systolic. She denies any significant heart failure symptoms. Denies any worsening shortness of breath, orthopnea, PND. Denies any prolonged palpitation irregular heartbeat. Denies any exertional chest pain. She has not had any significantly elevated blood pressure symptoms. Her stress level has been much significantly reduced. [facility] Medical History Subarachnoid hemorrhage Tricuspid valve regurgitation, nonrheumatic Orthostatic hypotension dysautonomic syndrome Surgical History Hx of cardiac cath Family History Father CVD (cardiovascular disease) Mother CVD (cardiovascular disease) Review of Systems Const Denies chills, Denies fatigue, Denies fever(s), Denies frequent falls, Denies weakness, Denies weight gain and Denies weight loss ENT Denies dizziness Card Denies chest pain, Denies leg edema, Denies lightheadedness, Denies palpitations, Denies dyspnea, Denies dyspnea on exertion, Denies orthopnea and Denies other (loss of consciousness) Resp Denies cough, Denies dyspnea and Denies dyspnea on exertion GI Denies hematochezia and Denies change in stool character Musc Denies abnormal gait, Denies muscle weakness, Denies numbness, Denies radiating pain into limb and Denies tingling Neuro Denies abnormal gait, Denies dizziness, Denies frequent falls, Denies numbness, Denies tingling and Denies weakness Endo Denies fatigue and Denies palpitations Physical Exam Vital Signs: Last Vital Signs Pulse 101 H 10/19/23 15:06 BP 138/74 10/19/23 15:06 BMI result Body Mass Index 21.2 BP recheck done by me, sitting 118/48, standing 98/46 Const General: cooperative, healthy appearing, comfortable and no acute distress Orientation/consciousness: patient oriented x3 Neck Neck: Yes normal visual inspection Resp Effort & Inspection: normal respiratory effort Auscultation: clear to auscultation bilaterally, no crackles, no rales, no rhonchi and no wheezes Cardio Jugular venous distension: no JVD Rate: regular rate Rhythm: regular rhythm Heart sounds: S1 normal heart sound present, S2 normal heart sound present, no murmurs and no rubs Neuro General: patient oriented x3 Extrem General: Yes normal to inspection Psych Appearance: grossly normal Mental Status: mental status grossly normal Speech and movement: Normal speech and movement present Assessment & Plan Assessment & Plan (1) Labile blood pressure: Code(s): R09.89 - Other specified symptoms and signs involving the circulatory and respiratory systems Category: Medical Plan: Significant lead labile blood pressure related to autonomic dysfunction with not blood pressure swinging to the lower side with significant symptoms of orthostatic lightheadedness. Lowering of blood pressure may be due to lowering of her overall stress and anxiety level as she has not currently taking care of her and her stress level as reduced. Have advised her to maintain adequate hydration. Orthostatic precautions were reiterated. Advised to lower valsartan to 80 mg daily and continue monitor blood pressure report to me in a month's time. If she continues to have low blood pressure will discontinue valsartan therapy. This was discussed with her. Management of this condition was discussed and she understands well. Goal high systolic blood pressure at 140 mm of Hg. (2) (HFpEF) heart failure with preserved ejection fraction: Code(s): I50.30 - Unspecified diastolic (congestive) heart failure Category: Medical Plan: Heart failure preserved ejection fraction, clinically euvolemic and well compensated. Advised to continue aggressive blood pressure control. Continue current medications. Continue current diuretic dose and Lasix every other day. Daily weight monitoring avoidance of salt loading was discussed. Continue spironolactone therapy. Aggressive but permissive blood pressure control is recommended. Encouraged to continue to participate in physical activity as tolerated. Will follow up in the clinic in 6 months time, sooner p.r.n.. Thank you for allowing me to partake in her care Medications: Changed From valsartan 160 mg PO DAILY To valsartan 80 mg PO DAILY Coding Level of Care Code Est Pt Level 4 (67011) Diagnoses Labile blood pressure R09.89 (HFpEF) heart failure with preserved ejection fraction I50.30
== END 2023-10-19 15:40 | disposition home or self-care (01) ==
PROVIDERS: PCP Internal Medicine; Visit Provider Internal Medicine Cardiovascular Disease
DX: R09.89 Other specified symptoms and signs involving the circulatory and respiratory systems (principal); I50.30 Unspecified diastolic (congestive) heart failure
CPT/HCPCS: 99214

== ENCOUNTER → 2023-10-19 14:43 | Outpatient (BNVA) | payer MEDICARE, OTHER, SELFPAY | PROVIDERS: PCP Internal Medicine; Visit Provider Internal Medicine Cardiovascular Disease | DX: R09.89 Other specified symptoms and signs involving the circulatory and respiratory systems (principal); I11.0 Hypertensive heart disease with heart failure; I50.30 Unspecified diastolic (congestive) heart failure | CPT/HCPCS: 99212 ==

== ENCOUNTER → 2024-04-10 12:32 | Outpatient (REF) | payer MEDICARE, SELFPAY ==
--- NOTE | 2024-04-10 12:36 | CA_ITS ---
Transthoracic Echocardiogram Patient (Last, First, Middle): Antonina Kaur, Gender: Female Date of : 1940 Age: 83 Procedure Date: 04/10/2024 Procedure Type: Transthoracic Echocardiogram Location: OP Height: 154.94 cm Weight: 50.8 kg BSA: 1.48 m2 Heart Rate: 75 bpm BP: 136 / 70 mmHg Hospital Account Manager: MARCEL Referring MD: Benson Rodriguez MD Symptoms: I50.30 - Unspecified diastolic (congestive) heart failure Study Quality: Adequate ECG Rhythm: Sinus Conclusions: - The left ventricular systolic function is normal. The calculated ejection fraction is 66% by biplane method. - The basal inferior segment is akinetic. - There is mild tricuspid valve regurgitation. Findings Left Ventricle Normal left ventricular cavity size. There is mildly increased left ventricular wall thickness. The left ventricular systolic function is normal. The calculated ejection fraction is 66% by biplane method. Evidence suggests grade I (mild) diastolic dysfunction. There is moderate septal asymmetric hypertrophy. Wall Motion Rest Echo Findings The basal inferior segment is akinetic. Right Ventricle Normal right ventricular cavity size and systolic function. Atria The left atrium is normal in size. The right atrium is mildly dilated. Aortic Valve There is a normal trileaflet aortic valve. There is no aortic valve stenosis. There is no aortic valve regurgitation. Mitral Valve The mitral valve appears normal. There is trace mitral valve regurgitation. There is no mitral valve stenosis. Pulmonic Valve The pulmonic valve is likely normal. Tricuspid Valve There is mild tricuspid valve regurgitation. There is no evidence of pulmonary hypertension. Great Vessels The asc aorta is normal in size. Venous The inferior vena cava is normal in size and collapses greater than 50% with inspiration. Pericardium/Pleural There is a trivial pericardial effusion. Prior Study Comparison No significant change compared to prior study dated: 04/10/2022. Wall motion finding chronic, better seen in current study than prior. Measurements 2D Linear Measurements IVSd: 1.27 0.6-0.9/0.6-1.0 cm LVIDd: 3.30 3.9-5.3/4.2-5.9 cm LVIDd Index: 2.23 2.4-3.2/2.2-3.1 cm/m2 LVIDs: 2.03 2.0-3.6 cm LVPWd: 1.06 0.7-1.1 cm LA Diam: 3.10 2.7-3.8/3.0-4.0 cm LAIDs Index: 2.09 1.5-2.3 cm/m2 LV Mass: 148.22 67-162/88-224 g LV Mass Index: 100.15 43-95/49-115 g/m2 LVOT Diam: 1.70 3.0+(-)1.3 cm 2D Systolic Function EF 4C: 64.80 >55% EF 2C: 71.00 >55% EF BiP: 65.80 >55% Mitral Valve MV Pk E: 0.78 MV PK A: 0.75 MV Decel Time: 148.00 E/A: 1.00 E'Lateral: 5.87 E'Medial: 4.24 E/E' Med: 18.50 E/E' Lat: 13.30 PHT: 43.00 MVA PHT: 5.12 Decel [place]: 5.30 Aortic Valve AoV Pk Laith: 1.07 AoV Pk Grad: 5.00 ANNELISE: 1.76 LVOT LVOT Pk Laith: 0.90 LVOT Mn Laith: 0.62 LVOT VTI: 0.21 LVOT Pk Grad: 3.00 LVOT Mn Grad: 2.00 LVOT Diam: 1.70 LVOT Area: 2.27 Diastolic Function MV Pk E: 0.78 MV Pk A: 0.75 E/A: 1.00 E'Medial: 4.24 E/E' Med: 18.50 E' Laterial: 5.87 E/E' Lat: 13.30 Right Ventricle TAPSE (mm): 21.30 TVS' Laith: 11.40 Tricuspid Valve TR Pk Laith: 2.50 TR Pk Grad: 25.00 RA Press: 3.00 RVSP: 28.00 Great Vessels Aorta Sinus of Valsalva: 2.50 2.0-3.5 cm Ao Asc: 2.90 2.1-3.4 cm Pulmonary Veins Pulm Vein S/D 2.00 Pulmonary Valve PV Pk Laith: 0.81 Peak PV Grad: 3.00 Updated in Other Vendor System with Status of Final Prince Gabriel MD electronically signed on 04/11/2024 10:18:10 AM with status of Final
--- OUTSIDE RECORDS SUMMARY | 2024-04-10 12:36 | XMS_ITS | Continuity of Care Document ---
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 Otologic exam otherwise remarkable for collapsing canals bilaterally. Recommend updated hearing aid technology and appointment was scheduled with audiology department for evaluation and discussion of options. [email or web address] Not available 02/28/2024 10:04:14 Plan of Treatment Reminders Order Date Submit Date Provider Last Modified By Organization Details Last Modified Time Details Appointments Establish ed 15 2024 09:15A M MANDEEP MARTÍNEZ PA-C Not available Not available Not available Lab None recorded. Referral None recorded. Procedures None recorded. Surgeries None recorded. Imaging None recorded. Medication Orders None recorded. Patient TargetsNo targets recorded. Patient InstructionsNo instructions recorded. Reason for Referral None Reported. Problems Name Problem SNOMED Code Status Onset Date Resolution Date Notes Provider Name and Address Organization Details Recorded Time Impacted cerumen in right ear 76591638103 33437 Active 2023 MANDEEP MARTÍNEZ PA-C [address] [facility],[place] [address], [place], [address] , [place] - [facility] 11:31:46 Sensorine ural hearing loss of bilateral ears 316651826 Active 2023 MANDEEP MARTÍNEZ PA-C [address] [facility],[place] [address], [place], [address] , [place] - [facility] 4 11:31:52 Bilateral tinnitus 62871062079 02 Active 2023 Tinnitus, bilateral ; Note: Date Diagnosed : 05/26/2023 11:24 AM (H93.13) Not Available [facility] 4 02:41:12 Impacted cerumen in left ear 24655198615 66965 Active 2023 Impacted cerumen, left ear; Note: Date Diagnosed : 05/26/2023 11:23 AM (H61.22) Not Available [facility] 4 02:41:20 Impacted cerumen of bilateral ears 12362854582 66272 Active 2023 MANDEEP MARTÍNEZ PA-C [address] [facility] [place],[address], [place], [address] , [place] - [facility] 10:02:15 Problem Notes None recorded. Procedures Surgical History Date Name Laterality Status Provider Name and Address Organization Details Recorded Time 02/28/20 24 Cerumen removal without microscope bilat completed MANDEEP MARTÍNEZ PA-C [address] [facility] [address], [place], [address], [place] - [facility] 02/28/2024 10:01:57 11/02/19 24 Comp Audio with Tymps (96151 & 19351) completed Siena Flores [place] - [facility] 11/02/2023 12:12:12 11/02/19 24 Cerumen removal without microscope right completed MANDEEP MARTÍNEZ PA-C [address] [facility] [address], [place], [address], [place] - [facility] 11/02/2023 12:25:30 cholecystectomy completed Diana Sanchez [place] - [facility] 02/28/2024 09:29:32 Imaging Results None recorded. Procedure Notes None recorded. Medical Equipment None Reported. Allergies No known drug allergies Medications Name Sig Start Date Stop Date Status Note LastModified by Organization Details LastModified Time amoxicill in 500 mg capsule TAKE 4 CAPSULES BY MOUTH BEFORE DENTAL VISIT 02/27 completed Not Available Not Available Not Available salsalate 500 mg tablet active Medicati on ID: [id number] B rand Name: salsalat e Send Method: E-Prescr ibed Sub s Allowed: subs OK Medic ationGen ericName : salsalat e Not Available Not Available Not Available pravastat in 40 mg tablet TAKE 1 TABLET DAILY active Not Available Not Available No t Available valsartan 80 mg tablet active Not Available Not Available Not Available spironola ctone 25 mg tablet TAKE 1 TABLET DAILY active Not Available Not Available No t Available omeprazol e 20 mg capsule,d elayed release TAKE 1 CAPSULE DAILY active Not Available Not Available No t Available furosemid e 20 mg tablet TAKE 1 TABLET EVERY OTHER DAY FOR WEIGHT GAIN DIRECTED . AND TAKE AN ADDITION AL TABLET FOR SWELLING AND WEIGHT GAIN. CALL DOCTOR FOR INSTRUCT IONS WHEN THIS HAPPENS active Not Available Not Available No t Available labetalol 100 mg tablet active Not Available Not Available Not Available valsartan 160 mg tablet 02/27 completed Not Available Not Available Not Available Humira Pen 40 mg/0.8 mL subcutane ous kit active Not Available Not Available Not Available cholecalc iferol (vitamin D3) 25 mcg (1,000 unit) tablet active Medicati on ID: [id number] B rand Name: cholecal ciferol (vitamin D3) Send Method: E-Prescr ibed Sub s Allowed: subs OK Speci al Instruct ion: TAKE 1 TABLET BY MOUTH EVERY DAY Medi cationGe nericNam e: cholecal ciferol (vitamin D3) Not Available Not Available Not Available GaviLyte- G 236 gram-22.7 4 gram-6.74 gram-5.86 gram oral solution TAKE 8 OUNCE BY MOUTH DIRECTED FOLLOW INSTRUCT IONS PROVIDED TO YOU BY DOCTORS OFFICE 02/27 completed Not Available Not Available Not Available Creon 12,000-38 ,000-60,0 00 unit capsule,d elayed release TAKE 1 CAPSULE 4 TIMES DAILY WITH MEALS active Not Available Not Available No t Available Xifaxan 550 mg tablet TAKE 1 TABLET BY MOUTH THREE TIMES A DAY 02/27 completed Not Available Not Available Not Available Jardiance 10 mg tablet TAKE 1 TABLET DAILY active Not Available Not Available No t Available Vitals Date Recorded Body height Body mass index (BMI) Body weight Provider Name and Address Organization Details Last Updated DateTime 02/28/2024 154.94 cm 21 kg/m2 15481.75 g Diana Daniel [place] - [facility] 02/28/2024 09:28:19 Social History None recorded. Functional Status None recorded. Mental Status None recorded. Family History Nothing Reported. Medical History Condition Response Hypertension Y High Cholesterol Y GERD/Reflux Y Gynecological HistoryNo gynecological history recorded. Obstetrics History GPAL:G 0 P 0 0 0 0 Past Encounters Encounter ID Performer Location Encounter Start Date Encounter Closed Date Diagnosis/Indication Diagnosis SNOMED-CT Code Diagnosis ICD10 Code [id number] KULWANT FERGUSON MD [facility] [address] [address] 02/28/2024 09:14:42 02/28/2024 09:39:55 Impacted cerumen of bilateral ears [id number] 383272 H61.23 Sensorineu ral hearing loss of bilateral ears 523729087 H90.3 Health Concerns Section Related Observation LastModified by Organization Detai ls LastModified Time None Recorded Concern Status LastModified by Organization Details LastModified Time None Recorded Payers Encounter Date Sequence Insurance Name Policy Number Policy Marrero Covered Member ID Marrero Member ID Guarantor Name 02/28/2024 1 MEDICARE B-[place]: [facility] [employer] [facility] Antonina Kaur [id number] Antonina Kaur 02/28/2024 2 FORMERLY [facility] INDEMNITY PLAN - [facility] [id number] Antonina Kaur [id number] Antonina Kaur Notes Date Note Type Note Provider Name and Address Organization Details Recorded Time 02/28/2024 text/html 83-year-old fema richelle presents for cerumen removal. She denies change in hearing, otalgia, and otorrhea. Had audiometric testing at her last visit and is interested in updating her hearing aid technology. Would like something that fits in her ear canal as she finds the [id number]-[id number] models difficult to place and remove. KULWANT PAN MD [address] [place] [address], [place], [address], [place] - [facility] 02/28/2024 10:57:15 OBGyn Episode No OBEpisode recorded.
== END ==
LOC: HO.CARD 12:32
PROVIDERS: PCP Internal Medicine; Visit Provider Internal Medicine Cardiovascular Disease
DX: I50.30 Unspecified diastolic (congestive) heart failure (principal)
CPT/HCPCS: 93306

== ENCOUNTER → 2024-04-10 12:36 | Outpatient (BNV) | payer MEDICARE, SELFPAY | PROVIDERS: PCP Internal Medicine; Visit Provider Internal Medicine | DX: I42.2 Other hypertrophic cardiomyopathy (principal); I50.30 Unspecified diastolic (congestive) heart failure; I36.1 Nonrheumatic tricuspid (valve) insufficiency | CPT/HCPCS: 93306 ==

== ENCOUNTER 2024-05-25 14:52 | Outpatient (AMB) | payer MEDICARE, SELFPAY ==
[2024-05-25 14:55] VITALS: BP 140/76; PULSE 76; BMI 21.7
--- NOTE | 2024-05-25 14:55 | MHC.OFFVIS ---
Vital Signs 05/25/24 14:55 Height 5 ft 1 in Weight 114 lb 10.246 oz BMI 21.7 BP 140/76 H Blood Pressure Location Lt brachial Position Sitting Pulse 76 Intake Visit Reasons: 6 mth f/up Intake Note: 6 month follow-up feelng good Processing Manager Required: No Allergies sulfasalazine [From AZULFIDINE] Allergy (Unknown, Verified 11/02/22 09:03) ? RXN - ? AFFECTED WBCS Medication List - Last Reconciled 05/25/24 by Benson Rodriguez MD adalimumab (Humira Pen) mg subcut cholecalciferol (vitamin D3) 25 mcg PO DAILY cyanocobalamin (vitamin B-12) (Vitamin B-12) 1,000 mcg PO DAILY empagliflozin (Jardiance) 10 mg PO DAILY furosemide (Lasix) 20 mg PO Q OTHER DAY 90 days hydralazine 10 mg PO ONCE PRN labetalol 100 mg PO BID 90 days [id number]-rgidqqqe-tqxvojz 12,000-38,000 -60,000 unit (Creon) 1 cap PO QID omeprazole 20 mg PO DAILY pravastatin 40 mg PO DAILY salsalate 1,000 mg PO BID spironolactone 25 mg PO DAILY valsartan 80 mg PO DAILY HPI Comments Details: Antonina comes for follow-up. He is accompanied by her niece. Overall she has been doing well. She has had no significant hospital admission since I last saw her. She maintains activity level as tolerated. Her fluid status has been well controlled on current therapy. She still gets symptoms of lightheadedness and notices that her blood pressures are low unusually takes a supine or sitting position and does increase her fluid intake with resolution of symptoms. She has not had any syncopal episodes. She was takes all her medications regularly. No prolonged palpitation irregular heartbeat. Blood pressure is generally well controlled. [facility] Medical History Subarachnoid hemorrhage Tricuspid valve regurgitation, nonrheumatic Orthostatic hypotension dysautonomic syndrome Surgical History Hx of cardiac cath Family History Father CVD (cardiovascular disease) Mother CVD (cardiovascular disease) Review of Systems Const Denies chills, Denies fatigue, Denies fever(s), Denies frequent falls, Denies weakness, Denies weight gain and Denies weight loss ENT Denies dizziness Card Denies chest pain, Denies leg edema, Denies lightheadedness, Denies palpitations, Denies dyspnea, Denies dyspnea on exertion, Denies orthopnea and Denies other (loss of consciousness) Resp Denies cough, Denies dyspnea and Denies dyspnea on exertion GI Denies hematochezia and Denies change in stool character Musc Denies abnormal gait, Denies muscle weakness, Denies numbness, Denies radiating pain into limb and Denies tingling Neuro Denies abnormal gait, Denies dizziness, Denies frequent falls, Denies numbness, Denies tingling and Denies weakness Endo Denies fatigue and Denies palpitations Physical Exam Vital Signs: Last Vital Signs Pulse 76 05/25/24 14:55 BP 140/76 H 05/25/24 14:55 BMI result Body Mass Index 21.7 BP recheck done by me, sitting 118/48, standing 98/46 Const General: cooperative, healthy appearing, comfortable and no acute distress Orientation/consciousness: patient oriented x3 Neck Neck: Yes normal visual inspection Resp Effort & Inspection: normal respiratory effort Auscultation: clear to auscultation bilaterally, no crackles, no rales, no rhonchi and no wheezes Cardio Jugular venous distension: no JVD Rate: regular rate Rhythm: regular rhythm Heart sounds: S1 normal heart sound present, S2 normal heart sound present, no murmurs and no rubs Neuro General: patient oriented x3 Extrem General: Yes normal to inspection Psych Appearance: grossly normal Mental Status: mental status grossly normal Speech and movement: Normal speech and movement present Assessment & Plan Assessment & Plan (1) (HFpEF) heart failure with preserved ejection fraction: Code(s): I50.30 - Unspecified diastolic (congestive) heart failure Category: Medical Plan: Heart failure preserved ejection fraction, clinically euvolemic and well compensated current therapy with Lasix which she is taking on every other day along with Jardiance and spironolactone. Importance of medical therapy was discussed. Daily weight monitoring avoidance salt loading was discussed. Continue participate in regular physical activity as tolerated. Additional diuretics as need be. (2) Labile blood pressure: Code(s): R09.89 - Other specified symptoms and signs involving the circulatory and respiratory systems Category: Medical Plan: Significantly labile blood pressure which is adequately controlled at this point time. She has had subarachnoid hemorrhage related to significantly elevated blood pressure and therefore aggressive control blood pressure is recommended. She was still has symptoms of orthostatic lightheadedness no occasionally low blood pressure and she knows how to manage them. We discussed about orthostatic precautions. She understands agrees. Advised to continue monitor blood pressure at home. (3) Tricuspid valve regurgitation, nonrheumatic: Code(s): I36.1 - Nonrheumatic tricuspid (valve) insufficiency Category: Medical Plan: Tricuspid regurgitation which is moderate and not likely responsible for heart failure syndrome. Advised to monitor clinically. No interventions required. Will follow up in the clinic in 6 months time, sooner p.r.n.. Thank you for allowing me to partake in her care Coding Level of Care Code Est Pt Level 4 (64873) Complex EM visit Add On G2211 Diagnoses (HFpEF) heart failure with preserved ejection fraction I50.30 Labile blood pressure R09.89 Tricuspid valve regurgitation, nonrheumatic I36.1
--- OUTSIDE RECORDS SUMMARY | 2024-05-25 18:47 | XMS_ITS | Data Portability ---
Author Organization [place] - [facility], Allergy Address [address] [address] Care Team Providers Care Pound Keeper Name Role Phone JOSE ELIAS MILIAN Primary Care Provider [phone] Assessment Encounter Date Assessment Date Assessment LastModified by Organization Details LastModified Time 02/28/2024 02/28/2024 Cerumen successfully removed today which patient tolerated well. Otologic exam otherwise remarkable for collapsing canals bilaterally. Recommend updated hearing aid technology and appointment was scheduled with audiology department for evaluation and discussion of options. Not available 02/28/2024 10:04:14 Plan of Treatment Reminders Order Date Submit Date Provider Last Modified By Organization Details Last Modified Time Details Appointments None record ed. Lab None record ed. Referral None record ed. Procedures None record ed. Surgeries None record ed. Imaging None record ed. Medication Orders None record ed. Patient TargetsNo targets recorded. Patient Instructions Encounter Date Encounter Id Patient Instructions Last Modified By Organization Details Last Modified Time 11/02/2023 [id number] Cerumen successfully removed from right ear, which patient tolerated well. Otologic exam otherwise unrevealing. Patient complains of hearing loss. Audiometric testing obtained today and reviewed with patient demonstrates bilateral neurosensory hearing loss, affecting the frequencies of human speech, with resultant decreased speech discrimination. Reviewed with patient hearing loss is amenable to hearing aids; recommend binaural amplification. Recommend annual audiometric testing, sooner with perceived change in hearing. All questions were answered. Not available 11/02/2023 12:26:30 Reason for Referral None Reported. Results Created Date Observation Date Name Description Value Unit Range Abnormal Flag Note LastModifiedBy Organization Detail LastModifiedTime 11/03/19 24 audio gram No observ ation record ed. [email or web address] Not Available 10/24 08:56:29 Result Notes None recorded. Problems Name Problem SNOMED Code Status Onset Date Resolution Date Notes Provider Name and Address Organization Details Recorded Time Impacted cerumen in right ear 90690925469 38879 Active 2023 MANDEEP MARTÍNEZ PA-C [address] [place],[address], [place], [address] , [facility] - [facility] 4 11:31:46 Sensorine ural hearing loss of bilateral ears 217349275 Active 2023 MANDEEP MARTÍNEZ PA-C [address] [facility] [place] [facility], [place], [address] , [facility] - [facility] 4 11:31:52 Bilateral tinnitus 84371436324 02 Active 2023 Tinnitus, bilateral ; Note: Date Diagnosed : 05/26/2023 11:24 AM (H93.13) Not Available [facility] 4 02:41:12 Impacted cerumen in left ear 32524548825 22724 Active 2023 Impacted cerumen, left ear; Note: Date Diagnosed : 05/26/2023 11:23 AM (H61.22) Not Available [facility] 4 02:41:20 Impacted cerumen of bilateral ears 39687628747 00161 Active 2023 MANDEEP MARTÍNEZ PA-C [address] [facility],[place] [facility], [place], [address] , [facility] - [facility] 4 10:02:15 Problem Notes None recorded. Procedures Surgical History Date Name Laterality Status Provider Name and Address Organization Details Recorded Time 02/28/20 24 Cerumen removal without microscope bilat completed MANDEEP MARTÍNEZ PA-C [address], [place], [address], [facility] - [facility] 02/28/2024 10:01:57 11/02/19 24 Comp Audio with Tymps (05676 & 43088) completed Siena Flores [place] - [facility] 11/02/2023 12:12:12 11/02/19 24 Cerumen removal without microscope right completed MANDEEP MARTÍNEZ PA-C [address] [facility],[place] [address], [place], [address], [place] - [facility] 11/02/2023 12:25:30 cholecystectomy completed Diana Sanchez [place] - [facility] 02/28/2024 09:29:32 Imaging Results Imaging Date Name Status LastModified by Organiz ation Details LastModified Time 11/03/2023 audiogram completed [email or web address] Information n ot available 11/03/2023 08:56:29 Procedure Notes None recorded. Medical Equipment None Reported. Allergies No known drug allergies Medications Name Sig Start Date Stop Date Status Note LastModified by Organization Details LastModified Time amoxicill in 500 mg capsule TAKE 4 CAPSULES BY MOUTH BEFORE DENTAL VISIT 02/27 completed Not Available Not Available Not Available salsalate 500 mg tablet active Medicati on ID: [id number] B rand Name: salsalat e Send Method: E-Prescr ibed Sub s Allowed: subs [place] [facility] sals[facility] Not Available Not [...] (1,000 unit) tablet active Medicati on ID: [id number] B rand Name: cholecal ciferol (vitamin D3) [...] and Address Organization Details Last Updated DateTime 11/02/2023 154.94 cm 21 kg/m2 81716.75 g Diana Sanchez [facility] 11/02/2023 11:21:28 Date Recorded Body height Body mass index (BMI) Body weight Provider Name and Address Organization Details Last Updated DateTime 02/28/2024 154.94 cm 21 kg/m2 37217.75 g Diana Sanchez [facility] 02/28/2024 09:28:19 Social History None recorded. Functional Status None recorded. Mental Status None recorded. Family History Nothing Reported. Medical History Condition Response High Cholesterol Y GERD/Reflux Y Hypertension Y Gynecological HistoryNo gynecological history recorded. Obstetrics History GPAL:G 0 P 0 0 0 0 Past Encounters Encounter ID Performer Location Encounter Start Date Encounter Closed Date Diagnosis/Indication Diagnosis SNOMED-CT Code Diagnosis ICD10 Code Diagnosis Note [id number] KULWANT FERGUSON MD [facility] [address] [address] 11/02/2023 11:11:30 11/02/2023 12:24:49 Impacted cerumen in right ear 7289990123 963673 H61.21 Sensorineu ral hearing loss of bilateral ears 703713348 H90.3 [id number] TERESA FINNEY [facility] [address] [place] [address] 11/02/2023 12:11:42 11/12/2023 13:51:15 Sensorineural hearing loss of bilateral ears 198423444 H90.3 Audiologic al evaluation results: Right ear: {{Normal* Mild Moder ate Modera tely-sever e Severe P rofound}} {{hearing sloping to a mild slopi ng to a moderate s loping to moderately severe slo ping to severe* sl oping to profound f lat high frequency low frequency mid frequency cookie bite block curve}} {{with sen sorineural hearing loss with* cond uctive hearing loss with mixed hearing loss with}} {{excellen t good* fa ir poor no measurable }} word recognitio n. Left ear: {{Normal* Mild Moder ate Modera tely-sever e Severe P rofound}} {{hearing sloping to a mild slopi ng to a moderate s loping to moderately severe slo ping to severe* sl oping to profound f lat high frequency low frequency mid frequency cookie bite block curve}} {{with sen sorineural hearing loss with* cond uctive hearing loss with mixed hearing loss with}} {{excellen t good* fa ir poor no measurable }} word recognitio n. Tympanomet ry: Right Ear:{{Type A* Type As Type Ad Type C Type C, shallow & rounded Ty pe B Type B with large volume Cou ld not maintain a hermetic seal}} Left Ear:{{Type A Type As Type Ad* Type C Type C, shallow & rounded Ty pe B Type B with large volume Cou ld not maintain a hermetic seal}} [id number] KULWANT FERGUSON MD [facility] [address] [place] [address] 02/28/2024 09:14:42 02/28/2024 09:39:55 Impacted cerumen of bilateral ears 0548370476 292485 H61.23 Sensorineu ral hearing loss of bilateral ears 263583726 H90.3 Health Concerns Section Related Observation LastModified by Organization Detai ls LastModified Time None Recorded Concern Status LastModified by Organization Details LastModified Time None Recorded Advance Directives Directive None Recorded Payers Encounter Date Sequence Insurance Name Policy Number Policy Marrero Covered Member ID Marrero Member ID Guarantor Name 11/02/2023 1 [place] [facility] Antonina Kaur [id number] Antonina Kaur 11/02/2023 2 [facility] IN[employer]MNITY PLAN - UNICARE [id number] Antonina Kaur [id number] Antonina Kaur 11/02/2023 1 [place] [facility] Antonina Kaur [id number] Antonina Kaur 11/02/2023 2 [facility] IN[employer]MNITY [facility]AN - UNICARE [id number] Antonina Kaur [id number] Antonina Kaur 02/28/2024 1 [place] [facility] Antonina Kaur [id number] Antonina Kaur 02/28/2024 2 [facility] [id number] Antonina Kaur [id number] Antonina Kaur Notes Date Note Type Note Provider Name and Address Organization Details Recorded Time 11/02/2023 text/html 82 year old yoav peoples presents for evaluation of ears and hearing. Reports difficulty hearing her children and grandchildren. She has a pair of hearing aids that she got a few years ago at [facility] but they do not fit comfortably and she rarely uses them. KULWANT PAN MD [address] [place] [address], [phone], [facility] 11/02/2023 13:27:03 02/28/2024 text/html 83-year-old yoav peoples presents for cerumen removal. She denies change in hearing, otalgia, and otorrhea. Had audiometric testing at her last visit and is interested in updating her hearing aid technology. Would like something that fits in her ear canal as she finds the [id number] models difficult to place and remove. KULWANT PAN MD [address] [place] [address], [phone], [facility] 02/28/2024 10:57:15 OBGyn Episode No OBEpisode recorded.
--- OUTSIDE RECORDS SUMMARY | 2024-05-25 18:47 | XMS_ITS | Encounter Summary ---
Author Organization [facility] Address [address] [place] [address] Care Team Providers Care Sales Analyst Name Role Phone Margaret Lynn MD Primary Care Provider [phone] Encounter Details Date Type Department Care Team (Late st Contact Info) Description 05/04/2024 Telephone Gastroenterology - [address] [place] [address] Elma Clark MA Social History Tobacco Use Types Packs/Day Years Used Date Smoking Tobacco: Never Assessed Sex and Gender Information Value Date Recorded Sex Assigned at Not on file Gender Identity Not on file Sexual Orientation Not on file Job Start Date Occupation Industry Not on file Not on file Not on file documented as of this encounter Progress Notes * Alexandra Ochoa MA - 05/04/2024 12:03 PM EST THE ORDER IS IN THE SYSTEM. PT WILL CALL BOOKING TO BOOK HER CT SCAN * Elma Clark MA - 05/04/2024 11:37 AM EST What is the status of mri that 01 told her we were going to set up for her. documented in this encounter Plan of Treatment Not on file documented as of this encounter Visit Diagnoses Not on filedocumented in this encounter Care Teams Sales Analyst Relationship Specialty Start Date End Date Margaret Lynn MD [address] [place] [address] [place] [address] PCP - General Internal Medicine 11/18/24 documented as of this encounter
--- OUTSIDE RECORDS SUMMARY | 2024-05-25 18:47 | XMS_ITS | Encounter Summary ---
Author Organization [facility] Address [address] [place] [address] Care Team Providers Care Insurance Coordinator Name Role Phone Margaret Lynn MD Primary Care Provider [phone] Encounter Details Date Type Department Care Team (Late st Contact Info) Description 05/15/2024 Telephone Gastroenterology - [address] [place] [address] Elma Clark MA Social History Tobacco Use Types Packs/Day Years Used Date Smoking Tobacco: Never Assessed Sex and Gender Information Value Date Recorded Sex Assigned at Not on file Gender Identity Not on file Sexual Orientation Not on file Job Start Date Occupation Industry Not on file Not on file Not on file documented as of this encounter Progress Notes * RADHA Kam - 05/15/2024 10:24 AM EST Ordered BMP which will have these orders in it, heidi Morris sent another request as well. * Shivani Cr MA - 05/15/2024 9:57 AM EST Spoke with pt and told her to come [address] to have blood work done. * Elma Clark MA - 05/15/2024 9:34 AM EST Enma@[employer] needs labs ordered for the pt.no orders in the systeme, appt today..needs gfr/bun/creatine.fax#[phone] documented in this encounter Plan of Treatment Not on file documented as of this encounter Visit Diagnoses Diagnosis Epigastric pain- Primary Abdominal pain, epigastric Irritable bowel syndrome, unspecified type Chronic calcific pancreatitis (CMS/HCC) documented in this encounter Care Teams Insurance Coordinator Relationship Specialty Start Date End Date Margaret Lynn MD [address] [facility] [place] [address] PCP - General Internal Medicine 03/13/24 documented as of this encounter
--- OUTSIDE RECORDS SUMMARY | 2024-05-25 18:47 | XMS_ITS | Encounter Summary ---
Author Organization [facility] Address [id number] [place] [address] Care Team Providers Care Regional Sales Executive Name Role Phone Margaret Lynn MD Primary Care Provider [phone] Reason for Referral * Imaging (Routine) - Closed Specialty Diagnoses / Procedures Referred By Laurie gilbert Referred To Contact Radiology Diagnoses Epigastric pain Procedures CT Abdomen Pelvis w Contrast Earle Vargas MD [address] [address] [facility] [address] [place] [address] Referral ID Status Reason Start Date Expiration Date Visits Re quested Visits Authorized [id number] Closed 04/21/2024 04/21/2025 1 1 Reason for Visit * Imaging (Routine) - Closed Specialty Diagnoses / Procedures Referred By Laurie gilbert Referred To Contact Radiology Diagnoses Epigastric pain Procedures CT Abdomen Pelvis w Contrast Ealre Vargas MD [address] [address] [facility] [address] [place] [address] Referral ID Status Reason Start Date Expiration Date Visits Re quested Visits Authorized [id number] Closed 04/21/2024 04/21/2025 1 1 Encounter Details Date Type Department Care Team (Latest Contact Info) Description 05/15/2024 1:56 PM EST - 05/15/2024 11:59 PM EST Hospital Encounter [facility] CT Scan [address] [place] [address] Epigastric pain Discharge Disposition: Home or Self Care Social History Tobacco Use Types Packs/Day Years Used Date Smoking Tobacco: Never Assessed Sex and Gender Information Value Date Recorded Sex Assigned at Not on file Gender Identity Not on file Sexual Orientation Not on file Job Start Date Occupation Industry Not on file Not on file Not on file documented as of this encounter Medications at Time of Discharge Medication Sig Dispensed Refills Start Date End Date cholecalciferol (VITAMIN D-3) 25 mcg (1,000 unit) tablet Take 1 tablet (1,000 Units total) by mouth 1 (one) time each day. 06/25/2022 cyanocobalamin (VITAMIN B-12) 1,000 mcg tablet Take 1 tablet (1,000 mcg total) by mouth 1 (one) time each day. 06/28/2022 furosemide (LASIX) 20 mg tablet TAKE 1 TABLET EVERY OTHER DAY FOR WEIGHT GAIN DIRECTED. AND TAKE AN ADDITIONAL TABLET FOR SWELLING AND WEIGHT GAIN. CALL DOCTOR FOR INSTRUCTIONS WHEN THIS HAPPENS Humira Pen 40 mg/0.8 mL pen 11/10/2017 Jardiance 10 mg tablet Take 1 tablet (10 mg total) by mouth 1 (one) time each day. labetaloL (NORMODYNE) 100 mg tablet Take 1 tablet (100 mg total) by mouth. 06/28/2022 omeprazole (PriLOSEC) [address] capsule Take 1 capsule (20 mg total) by mouth 1 (one) time each day. 04/09/2024 pravastatin (PRAVACHOL) 40 mg tablet Take 1 tablet (40 mg total) by mouth 1 (one) time each day. salsalate (DISALCID) 750 mg tablet Take 1 tablet (750 mg total) by mouth 2 (two) times a day. spironolactone (ALDACTONE) 25 mg tablet Take 1 tablet (25 mg total) by mouth 1 (one) time each day. valsartan (DIOVAN) 80 mg tablet 02/16/2024 documented as of this encounter Discharge Disposition Disposition Code Departure Means Destination Home or Self Care documented in this encounter Plan of Treatment Not on file documented as of this encounter Procedures Procedure Name Priority Date/Time Associated Diagnosis Comments CT ABDOMEN PELVIS W CONTRAST Routine 05/15/2024 3:05 PM EST Epigastric pain documented in this encounter Results * CT Abdomen Pelvis w Contrast (05/15/2024 3:05 PM EST) Anatomical Region Laterality Modality Body Computed Tomogra phy 05/19/2024 5:32 PM EST Impressions 05/19/2024 5:47 PM EST Extensive upper abdominal surgery. ??Multiple proximal small bowel diverticula. I doubt high-grade gastric outlet obstruction. 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 ?? -------- FINAL REPORT -------- Dictated By: Ulices Cueva Dictated Date: 05/19/2024 17:32 ET Assigned Physician: Ulices Cueva Reviewed and Electronically Signed By: Ulices Cueva Signed Date: 05/19/2024 17:47 ET Workstation ID: [id number] Transcribed By: Self Edit Transcribed Date: 05/19/2024 17:32 ET Narrative 05/19/2024 5:47 PM EST EXAMINATION: CT ABDOMEN/PELVIS WITH IV CONTRAST CLINICAL INFORMATION: Abdominal distention. ??History of multiple duodenal diverticula. ??Evaluate for outlet obstruction. ??Chronic lower abdomen pain. ??Epigastric pain. COMPARISON: None ?? TECHNIQUE: Multidetector CT. Helical examination of the abdomen and pelvis. Imaging performed after the IV administration of contrast. Reformatting in the coronal and sagittal planes. DLP: 355 mGy-cm Dose optimization was performed including the use of low-dose iterative reconstruction technique with automatic exposure control based on patient size. Type of contrast: ISOVUE 370 Volume of IV contrast: 90 mL Volume of contrast discarded: 0 mL FINDINGS: LIVER: The right lobe of the liver measures 14.8 cm. There are some small circumscribed low attenuating abnormalities in hepatic segment 4A. ??The central intrahepatic bile ducts are prominent. ??There is a very subtle low attenuating abnormality in the periphery of hepatic segment 7 (3/31). ??These findings are nonspecific but relatively unlikely to be of clinical significance. ?? BILIARY TRACT: ??Multiple surgical clips in the expected region of the gallbladder. ??The common duct is dilated (1.4 cm. SPLEEN: The spleen is not enlarged. ?? PANCREAS: The pancreas is somewhat atrophic. ??No definite pancreatic mass. ??The pancreatic head is difficult to evaluate but there is no convincing mass. ?? ADRENAL GLANDS: Within normal limits ?? KIDNEYS: There are areas of cortical thinning. ??There are low attenuating areas in the central aspect of the left kidney which could be parapelvic cysts. ??There is some dilation of the infundibula and renal pelvis on both sides. ??There is no definite ureteral calculus. ?? GASTROINTESTINAL TRACT: ?Large amount of fecal residue in the colon. ??There are some colonic diverticula. ??The proximal colon is not well distended. ??The appendix is within normal limits. Contrast has traversed the small bowel. There are multiple surgical clips near the GE junction. ??I suspect previous GE junction repair/hernia repair. ??There are some fairly prominent contrast filled loops in the right upper quadrant and I suspect there are multiple duodenal diverticula. ??Difficult to determine the position of the ligament of Treitz. URINARY BLADDER: ??No suspicious abnormality PELVIC VISCERA: ??There are coarse calcifications suggesting uterine fibroids. ??No suspicious adnexal mass or collection. ABDOMINAL WALL: No bowel hernia. ??Soft tissue gas in the left lower quadrant likely iatrogenic. ??Fat protrudes into the left groin more than right. ??This likely represents a femoral hernia. ?? LYMPHOVASCULAR STRUCTURES AND FLUID: There is marked atherosclerosis. ??There is no abdominal aortic aneurysm. The celiac axis is patent. There is at least moderately severe narrowing at the origin of the SMA. ??The inferior mesenteric artery is patent proximally. ??The portal vein enhances. There are no measurably enlarged lymph nodes. ??There is no free intraperitoneal fluid. ?? VISUALIZED LOWER CHEST: The atria appear enlarged. ??There are nonspecific lung base opacities. ?? MUSCULOSKELETAL: No acute or suspicious osseous abnormality. Procedure Note Ulices Cueva MD - 05/19/2024 EXAMINATION: CT ABDOMEN/PELVIS WITH IV CONTRAST CLINICAL INFORMATION: Abdominal distention. History of multiple duodenal diverticula. Evaluatefor outlet obstruction. Chronic lower abdomen pain. Epigastric pain. COMPARISON: None TECHNIQUE: Multidetector CT. Helical examination of the abdomen and pelvis. Imaging performed after the IV administration of contrast. Reformatting in the coronal and sagittal planes. DLP: 355 mGy-cm Dose optimization was performed including the use of low-dose iterativereconstruction technique with automatic exposure control based on patientsize. Type of contrast: ISOVUE 370 Volume of IV contrast: 90 mL Volume of contrast discarded: 0 mL FINDINGS: LIVER: The right lobe of the liver measures 14.8 cm. There are some smallcircumscribed low attenuating abnormalities in hepatic segment 4A. Thecentral intrahepatic bile ducts are prominent. There is a very subtle lowattenuating abnormality in the periphery of hepatic segment 7 (3/31).These findings are nonspecific but relatively unlikely to be of clinicalsignificance. BILIARY TRACT: Multiple surgical clips in the expected region of thegallbladder. The common duct is dilated (1.4 cm. SPLEEN: The spleen is not enlarged. PANCREAS: The pancreas is somewhat atrophic. No definite pancreatic mass.The pancreatic head is difficult to evaluate but there is no convincingmass. ADRENAL GLANDS: Within normal limits KIDNEYS: There are areas of cortical thinning. There are low attenuatingareas in the central aspect of the left kidney which could be parapelviccysts. There is some dilation of the infundibula and renal pelvis on bothsides. There is no definite ureteral calculus. GASTROINTESTINAL TRACT: Large amount of fecal residue in the colon.There are some colonic diverticula. The proximal colon is not welldistended. The appendix is within normal limits. Contrast has traversed the small bowel. There are multiple surgical clips near the GE junction. I suspectprevious GE junction repair/hernia repair. There are some fairlyprominent contrast filled loops in the right upper quadrant and I suspectthere are multiple duodenal diverticula. Difficult to determine theposition of the ligament of Treitz. URINARY BLADDER: No suspicious abnormality PELVIC VISCERA: There are coarse calcifications suggesting uterinefibroids. No suspicious adnexal mass or collection. ABDOMINAL WALL: No bowel hernia. Soft tissue gas in the left lowerquadrant likely iatrogenic. Fat protrudes into the left groin more thanright. This likely represents a femoral hernia. LYMPHOVASCULAR STRUCTURES AND FLUID: There is marked atherosclerosis.There is no abdominal aortic aneurysm. The celiac axis is patent. There is at least moderately severe narrowing at the origin of the SMA.The inferior mesenteric artery is patent proximally. The portal veinenhances. There are no measurably enlarged lymph nodes. There is no freeintraperitoneal fluid. VISUALIZED LOWER CHEST: The atria appear enlarged. There are nonspecificlung base opacities. MUSCULOSKELETAL: No acute or suspicious osseous abnormality. IMPRESSION: Extensive upper abdominal surgery. Multiple proximal small boweldiverticula. I doubt high-grade gastric outlet obstruction. 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 -------- FINAL REPORT -------- Dictated By: Ulices Cueva Dictated Date: 05/19/2024 17:32 ET Assigned Physician: Ulices Cueva Reviewed and Electronically Signed By: Ulices Cueva Signed Date: 05/19/2024 17:47 ET Workstation ID: [id number] Transcribed By: Self Edit Transcribed Date: 05/19/2024 17:32 ET Earle Vargas MD IMG CT PROCEDURES documented in this encounter Visit Diagnoses Diagnosis Epigastric pain Abdominal pain, epigastric documented in this encounter Administered Medications Inactive Administered Medications - up to 3 most recent administrations Medication Order MAR Action Action Date Dose Rate Site barium sulfate (READI-CAT 2) 2 % (w/v) suspension 900 mL 900 mL, oral, Once in imaging, Starting on Wed05/15/24 at 1457, For 1 dose Given 05/15/2024 2:57 PM EST 900 mL iopamidoL (ISOVUE-370) 370 mg iodine /mL (76 %) injection 90 mL 90 mL, intravenous, Once in imaging, Starting on Wed05/15/24 at 1457, For 1 dose Given 05/15/2024 2:57 PM EST 90 mL sodium chloride 0.9 % flush 10 mL 10 mL, intravenous, Once, On Wed05/15/24 at 1515, For 1 dose Given 05/15/2024 2:57 PM EST 10 mL documented in this encounter Care Teams Regional Sales Executive Relationship Specialty Start Date End Date Margaret Lynn MD [address] [place] [address] Dr Shaver, JENNIFER [address] PCP - General Internal Medicine 03/13/24 documented as of this encounter
--- OUTSIDE RECORDS SUMMARY | 2024-05-25 18:47 | XMS_ITS | Clinical Summary ---
Author Organization [facility] 299 [facility] Address [address] [place] [address] Phone Care Team Providers Care Solution Strategist Name Role Phone Margaret Lynn MD Primary Care Provider [phone] Allergies Active Allergy Reactions Criticality Noted Date Comments Sulfasalazine 04/21/2024 Medications Medication Sig Dispensed Refills Start Date End Date Status valsartan (DIOVAN) 80 mg tablet 02/16/2024 Active spironolactone (ALDACTONE) 25 mg tablet Take 1 tablet (25 mg total) by mouth 1 (one) time each day. Active salsalate (DISALCID) 750 mg tablet Take 1 tablet (750 mg total) by mouth 2 (two) times a day. Active pravastatin (PRAVACHOL) 40 mg tablet Take 1 tablet (40 mg total) by mouth 1 (one) time each day. Active omeprazole (PriLOSEC) [address] capsule Take 1 capsule (20 mg total) by mouth 1 (one) time each day. 04/09/2024 Active labetaloL (NORMODYNE) 100 mg tablet Take 1 tablet (100 mg total) by mouth. 06/28/2022 Active furosemide (LASIX) 20 mg tablet TAKE 1 TABLET EVERY OTHER DAY FOR WEIGHT GAIN DIRECTED. AND TAKE AN ADDITIONAL TABLET FOR SWELLING AND WEIGHT GAIN. CALL DOCTOR FOR INSTRUCTIONS WHEN THIS HAPPENS Active Jardiance 10 mg tablet Take 1 tablet (10 mg total) by mouth 1 (one) time each day. Active cyanocobalamin (VITAMIN B-12) 1,000 mcg tablet Take 1 tablet (1,000 mcg total) by mouth 1 (one) time each day. 06/28/2022 Active cholecalciferol (VITAMIN D-3) 25 mcg (1,000 unit) tablet Take 1 tablet (1,000 Units total) by mouth 1 (one) time each day. 06/25/2022 Active Humira Pen 40 mg/0.8 mL pen 11/10/2017 Active rifAXIMin (Xifaxan) 550 mg tabletIndications: Irritable bowel syndrome (IBS) Take 1 tablet (550 mg total) by mouth 3 (three) times a day for 14 days. 42 each 04/24/2024 05/08/2024 Active Problems Problem Noted Date Diagnosed Date Hx of colonic polyps 04/18/2024 Chronic calcific pancreatitis 04/18/2024 Diverticulosis of duodenum 04/18/2024 Irritable bowel syndrome with diarrhea Gastroesophageal reflux disease without esophagi tis 04/18/2024 Encounters Date Type Department Care Team Description 05/15/2024 1:56 PM EST - 05/15/2024 11:59 PM EST Hospital Encounter [facility] CT Scan [address] [place] [phone] Epigastric pain Discharge Disposition: Home or Self Care 05/15/2024 Telephone Gastroenterology - [address] [place] [phone] Elma Clark MA 05/04/2024 Telephone Gastroenterology - [address] [address] Emla Clark MA 04/21/2024 9:30 AM EST Office Visit Gastroenterology - [address] [address] Earle Vargas MD Epigastric pain (Primary Dx) 04/04/2024 Telephone Gastroenterology - [address] [place] [phone] Earle Vargas MD 04/03/2024 Telephone Gastroenterology - [address] [address] Alexandra Ochoa [place] 04/03/2024 Telephone Gastroenterology - [address] [address] Earle Vargas MD 03/13/2024 Telephone Gastroenterology - [address] [place] [address] Earle Vargas MD from Last 3 Months Social History Tobacco Use Types Packs/Day Years Used Date Smoking Tobacco: Never Assessed Sex and Gender Information Value Date Recorded Sex Assigned at Not on file Gender Identity Not on file Sexual Orientation Not on file Job Start Date Occupation Industry Not on file Not on file Not on file Last Filed Vital Signs Vital Sign Reading Time Taken Comments Blood Pressure - - Pulse - - Temperature - - Respiratory Rate - - Oxygen Saturation - - Inhaled Oxygen Concentration - - Weight 51.7 kg (114 lb) 04/21/2024 9:30 AM EST Height 154.9 cm (5' 1 ) 04/21/2024 9:30 AM EST Body Mass Index 21.54 04/21/2024 9:30 AM EST Plan of Treatment Health Maintenance Due Date Last Done Comments DTaP,Tdap,and Td Vaccines (1 - Tdap) 1960 Zoster Vaccines (1 of 2) 12/18/1991 Pneumococcal Vaccine: 65+ Years (1 of 1 - PCV) 2006 RSV Immunization Patients 60 + Years Old (1 - 1-dose 75+ series) 2016 COVID-19 Vaccine (3 - Pfizer risk series) 07/23/2020 06/25/2020, 06/04/2020 Depression Screening 03/29/2022 Falls Risk Assessment 03/29/2022 Medicare Annual Wellness Visit 03/29/2022 Osteoporosis Screening (Bone Density Screening) 03/29/2022 Social Influencers of Health Screening 03/29/2022 Influenza Vaccine (#1) 2023 HIB Vaccines Aged Out No longer eligi ble based on patient's age to complete this topic HPV Vaccines Aged Out No longer eligi ble based on patient's age to complete this topic Hepatitis A Vaccines Aged Out No long er eligible based on patient's age to complete this topic Hepatitis B Vaccines Aged Out No long er eligible based on patient's age to complete this topic IPV Vaccines Aged Out No longer eligi ble based on patient's age to complete this topic MMR Vaccines Aged Out No longer eligi ble based on patient's age to complete this topic Meningococcal ACWY Vaccine Aged Out N o longer eligible based on patient's age to complete this topic RSV Immunization Patients Under 20 months Aged Out No longer eligible b ased on patient's age to complete this topic Varicella Vaccines Aged Out No longer eligible based on patient's age to complete this topic Procedures Procedure Name Priority Date/Time Associated Diagnosis Comments CT ABDOMEN PELVIS W CONTRAST Routine 05/15/2024 3:05 PM EST Epigastric pain BASIC METABOLIC PANEL STAT 05/15/2024 1:33 PM EST Preop examination from Last 3 Months Results * CT Abdomen Pelvis w Contrast [...] Signed Date: 05/19/2024 17:47 ET Workstation ID: [id number] Transcribed By: Self Edit Transcribed Date: 05/19/2024 [...] Signed Date: 05/19/2024 17:47 ET Workstation ID: [id number] Transcribed By: Self Edit Transcribed Date: 05/19/2024 17:32 ET Earle Vargas MD [facility] CT PROCEDURES * (ABNORMAL) Basic metabolic panel (05/15/2024 1:33 PM EST) Sodium 138 133 - 145 mmol/L LAB CHEMISTRY METHOD 05/15/2024 2:16 PM [facility] Potassium 4.5 3.5 - 5.5 mmol/L LAB CHEMISTRY METHOD 05/15/2024 2:16 PM EST [facility] Chloride 103 96 - 110 mmol/L LAB CHEMISTRY METHOD 05/15/2024 2:16 PM [facility] CO2 27 21 - 32 mmol/L LAB CHEMISTRY METHOD 05/15/2024 2:16 PM [facility] Anion Gap 8 3 - 11 LAB CHEMISTRY METHOD 05/15/2024 2:16 PM [facility] Glucose 94 70 - 100 mg/dL LAB CHEMISTRY METHOD 05/15/2024 2:16 PM EST [facility] BUN 23 5 - 25 mg/dL LAB CHEMISTRY METHOD 05/15/2024 2:16 PM [facility] Creatinine 1.31(H) 0.50 - 1.10 mg/dL LAB CHEMISTRY METHOD 05/15/2024 2:16 PM [facility] eGFR 41(L) >=60 mL/min/1. 73m2 LAB CHEMISTRY METHOD 05/15/2024 2:16 PM EST [facility] Comment:Calculation based on the??Chronic Kidney Disease Epidemiology Collaboration (CKD-EPI) equation refit??without adjustment for race. BUN/Creatinine Ratio 17.6 LAB CHEMISTRY METHOD 05/15/2024 2:16 PM [facility] Calcium 9.8 8.5 - 10.5 mg/dL LAB CHEMISTRY METHOD 05/15/2024 2:16 PM EST [facility] Blood Venous blood specimen / Unknown Venipuncture / Unknown 05/15/2024 1:33 PM EST 05/15/2024 1:43 PM EST Shivani GARCIA LAB BLOOD ORDERABLES [facility] [address] [place] [address], from Last 3 Months Care Teams Solution Strategist Relationship Specialty Start Date End Date Margaret Lynn MD [address] [place] [address] [place] [address] PCP - General Internal Medicine 03/13/24
== END 2024-05-25 15:22 | disposition home or self-care (01) ==
PROVIDERS: PCP Internal Medicine; Visit Provider Internal Medicine Cardiovascular Disease
DX: I50.30 Unspecified diastolic (congestive) heart failure (principal); R09.89 Other specified symptoms and signs involving the circulatory and respiratory systems; I36.1 Nonrheumatic tricuspid (valve) insufficiency
CPT/HCPCS: 99214; G2211

== ENCOUNTER → 2024-05-25 14:52 | Outpatient (BNVA) | payer MEDICARE, SELFPAY | PROVIDERS: PCP Internal Medicine; Visit Provider Internal Medicine Cardiovascular Disease | DX: I50.30 Unspecified diastolic (congestive) heart failure (principal); I36.1 Nonrheumatic tricuspid (valve) insufficiency; R09.89 Other specified symptoms and signs involving the circulatory and respiratory systems | CPT/HCPCS: 99212 ==

== ENCOUNTER 2024-09-19 10:21 | Outpatient (REF) | payer MEDICARE, OTHER, SELFPAY ==
--- OUTSIDE RECORDS SUMMARY | 2024-09-19 11:10 | XMS_ITS | Encounter Summary ---
Author Organization [facility] Address [address] [place] [address] Care Team Providers Care Grade Teacher Name Role Phone Margaret Lynn MD Primary Care Provider [phone] Encounter Details Date Type Department Care Team (Late st Contact Info) Description 05/15/2024 Telephone Gastroenterology - [address] [place] [address] Elma Clark MA Social History Tobacco Use Types Packs/Day Years Used Date Smoking Tobacco: Never Assessed Comments Unknown Sex and Gender Information Value Date Recorded Sex Assigned at Not on file Legal Sex Female 6:20 AM EST Gender Identity Not on file Sexual Orientation Not on file documented as of this [...] pt.no orders in the systeme, appt today..needs gfr/bun/creatine.fax#[phone] documented in this encounter Plan of Treatment Not on file documented as of this encounter Visit Diagnoses Diagnosis Epigastric pain- Primary Abdominal pain, epigastric Irritable bowel syndrome, unspecified type Chronic calcific pancreatitis (CMS/HCC V24, CMS/HCC V28) documented in this encounter Care Teams Grade Teacher Relationship Specialty Start Date End Date Margaret Lynn MD [address] [place] [address] [place] [address] PCP - General Internal Medicine 03/13/24 documented as of this encounter
[2024-09-19 13:05] LABS: MANUAL DIFF FLAG NO
[2024-09-19 13:12] LABS: Basophils Absolute Auto 0.1 X10*3/uL (0.0-0.2); Eosinophils Absolute Auto 0.2 X10*3/uL (0.0-0.4); Eosinophils Percent Auto 3.8 % (0-4); Hematocrit 37.9 % (37.0-47.0); Hemoglobin 12.6 g/dl (12.0-16.0); Imm Gran Abs Auto 0.01 X10*3/uL (0.00-0.03); Imm Gran Pct Auto 0.2 % (0.0-0.4); Lymphocytes Absolute Auto 1.5 X10*3/uL (1.2-4.9); Lymphocytes Percent Auto 30.9 % (20-40); Mean Corpuscular HGB Conc 33.2 g/dl (31.0-35.0); Mean Corpuscular Hemoglobin 30.7 pg (27.0-33.0); Mean Corpuscular Volume 92.4 fL (80.0-98.0); Mean Platelet Volume 11.9 fL (9.4-12.3); Monocytes Absolute Auto 0.4 X10*3/uL (0.1-1.2); Monocytes Percent Auto 8.4 % (2-11); Neutrophils Absolute Auto 2.8 x10*3/uL (2.0-8.3); Neutrophils Percent Auto 55.7 % (45-73); Platelet Count 160 X10*3/uL (160-400); Red Cell Distribution Width 13.9 % (11.0-16.0)
[2024-09-19 13:39] LABS: Alanine Aminotransferase 9 U/L (0-31); Albumin Level 3.7 g/dL (3.5-5.0); Alkaline Phosphatase 57 U/L (39-117); Anion Gap 14 (12-20); Aspartate Amino Transferase 21 U/L (5-31); Bilirubin Total 0.2 mg/dL (0.0-1.0); Blood Urea Nitrogen 34 mg/dL (9-16); Calcium 9.2 mg/dL (8.4-10.2); Carbon Dioxide 25 mmol/L (22-29); Chloride 105 mmol/L (96-108); Cholesterol 180 mg/dL (<200); Estimated Glomerular Filt Rate 33; Glucose Random 91 mg/dL (60-115); HDL Cholesterol 58 mg/dL (>40); LDL Cholesterol Calculated 110 mg/dL (<100); Potassium 4.5 mmol/L (3.3-5.1); Sodium 139 mmol/L (135-145); Total Protein 6.7 g/dL (6.5-8.0); Triglycerides 63 mg/dL (<150)
== END 2024-09-19 10:22 | disposition home or self-care (01) ==
LOC: HO.10HDL 10:21
PROVIDERS: Visit Provider Internal Medicine
DX: E78.00 Pure hypercholesterolemia, unspecified (principal); I10 Essential (primary) hypertension; I34.0 Nonrheumatic mitral (valve) insufficiency; I50.42 Chronic combined systolic (congestive) and diastolic (congestive) heart failure; K58.9 Irritable bowel syndrome, unspecified; M06.9 Rheumatoid arthritis, unspecified
CPT/HCPCS: 36415; 80053; 80061; 82306; 85025

== ENCOUNTER 2024-09-29 08:03 | Outpatient (AMB) | payer MEDICARE, OTHER, SELFPAY ==
--- OUTSIDE RECORDS SUMMARY | 2024-09-29 08:07 | XMS_ITS | Encounter Summary ---
Author Organization [facility] Address [address] [place] [address] Care Team Providers Care Retail Selling Specialist Name Role Phone Margaret Lynn MD Primary Care Provider [phone] Encounter Details Date Type Department Care Team (Late st Contact Info) Description 05/15/2024 Telephone Gastroenterology - [address] [place] [address] Elma Clark MA Social History [...] pt.no orders in the systeme, appt today..needs gfr/bun/creatine.fax#[phone] documented in this encounter Plan of Treatment Not on file documented as of this encounter Visit Diagnoses Diagnosis Epigastric pain- Primary Abdominal pain, epigastric Irritable bowel syndrome, unspecified type Chronic calcific pancreatitis (CMS/HCC V24, CMS/HCC V28) documented in this encounter Care Teams Retail Selling Specialist Relationship Specialty Start Date End Date Margaret Lynn MD [address] [place] [address] [place] [address] PCP - General Internal Medicine 03/13/24 documented as of this encounter
[2024-09-29 08:17] VITALS: BP 140/52; PULSE 78; BMI 21.6
--- NOTE | 2024-09-29 08:17 | A.OFFVIS_ITS ---
Vital Signs 09/29/24 08:17 Height 5 ft 1 in Weight 114 lb 3.191 oz BMI 21.6 BP 140/52 H Blood Pressure Location Rt brachial Position Sitting Pulse 78 Pulse Source Monitor Intake Visit Reasons: f/u ekg having low heart rate and chest pressure Billing And Accounting Staff Assistant Required: No Allergies sulfasalazine [From AZULFIDINE] Allergy (Unknown, Verified 11/02/22 09:03) ? RXN - ? AFFECTED WBCS Medication List - Last Reconciled 09/29/24 by Akanksha Barahona NP-C adalimumab (Humira Pen) mg subcut cholecalciferol (vitamin D3) 25 mcg PO DAILY cyanocobalamin (vitamin B-12) (Vitamin B-12) 1,000 mcg PO DAILY empagliflozin (Jardiance) 10 mg PO DAILY furosemide (Lasix) 20 mg PO Q OTHER DAY 90 days hydralazine 10 mg PO ONCE PRN labetalol 100 mg PO BID 90 days [id number]-qnvxevra-zfyyuwj 12,000-38,000 -60,000 unit (Creon) 1 cap PO QID omeprazole 20 mg PO DAILY pravastatin 40 mg PO DAILY salsalate 1,000 mg PO BID spironolactone 25 mg PO DAILY valsartan 80 mg PO DAILY HPI HPI f/u ekg having low heart rate and chest pressure: Details: Antonina is an 83-year-old female presenting with reports of chest discomfort and low blood pressure readings. She suffers from heart failure with preserved EF, tricuspid regurgitation, and labile blood pressure. Historical subarachnoid hemorrhage necessitates strict BP control. She states notable decrease in heart rate to a low as 40s since Wednesday, causing dizziness, lightheadedness, and chest heaviness. Normally HR is in the 70s. Reports breathing difficulty and intermittent sharp chest pains. Previous creatinine elevation observed. She denies any recent changes to her medications and hydrates well with water. EKG shows sinus rhythm with PACs, bigeminy, and chronic T wave inversions. No recent medication changes. [facility] Medical History Subarachnoid hemorrhage Tricuspid valve regurgitation, nonrheumatic Orthostatic hypotension dysautonomic syndrome Surgical History Hx of cardiac cath Family History Father CVD (cardiovascular disease) Mother CVD (cardiovascular disease) Review of Systems Const All systems reviewed & are unremarkable except as noted in HPI and below ENT Reports dizziness (with quick movements) Card Details: her BP monitor is saying pulse in 40s at times Reports chest pain (discomfort), Denies chest pain at rest, Denies chest pain with activity, Denies rapid heart rate, Denies pedal edema, Denies edema, Denies leg edema, Denies lightheadedness, Denies palpitations, Denies dyspnea, Reports dyspnea on exertion and Denies orthopnea Resp Denies cough, Denies dyspnea and Reports dyspnea on exertion GI Denies hematochezia and Denies change in stool character Musc Denies abnormal gait, Denies limited range of motion, Denies muscle cramps, Denies muscle weakness, Denies numbness, Denies radiating pain into limb, Denies stiffness and Denies tingling Neuro Denies abnormal gait, Reports dizziness (with quick movements), Denies numbness and Denies tingling Endo Denies palpitations Physical Exam Vital Signs: Last Vital Signs Pulse 78 09/29/24 08:17 BP 140/52 H 09/29/24 08:17 BMI result Body Mass Index 21.6 Const General: cooperative, healthy appearing, comfortable and no acute distress Orientation/consciousness: patient oriented x3 Neck Neck: Yes normal visual inspection Resp Effort & Inspection: normal respiratory effort Auscultation: clear to auscultation bilaterally, no rales, no rhonchi and no wheezes Cardio Rate: regular rate Rhythm: regular rhythm Heart sounds: S1 normal heart sound present, S2 normal heart sound present, no gallops, no murmurs and no rubs Neuro General: patient oriented x3 Extrem General: Yes normal to inspection, No no pedal edema and No calf tenderness Psych Appearance: grossly normal Mental Status: mental status grossly normal Speech and movement: Normal speech and movement present Office Procedures EKG Details: Sinus rhythm with PACs and bigeminy pattern, T-wave abnormality inferior lateral leads which is same as prior EKG, rate 79, QTC 417 milliseconds [id number], Complete Results Reviewed Results Reviewed: 04/10/24 Echo Conclusions: - The left ventricular systolic function is normal. The calculated ejection fraction is 66% by biplane method. - The basal inferior segment is akinetic. - There is mild tricuspid valve regurgitation. - Labs (09/19/2024): Hematocrit 37.9, Potassium 4.5, Creatinine 1.5, LDL 110 - Previous Labs (09/02/2023): Creatinine 1.14 Assessment & Plan Assessment & Plan (1) SOB (shortness of breath) on exertion: Code(s): R06.02 - Shortness of breath Category: Medical Plan: Report of intermittent shortness of breath, lightheadedness and chest heaviness which are newer for her. She says her home blood pressure monitor is telling her that her heart rate at times is in the 40s. She is more symptomatic when he r heart rate is low. She has not had issues with hypotension. She is currently on labetalol 100 mg b.i.d. which is not a new medication for her. An EKG done today shows sinus rhythm with PACs in the pattern of bigeminy, rate 78. She does have a history of heart failure with preserved EF. She does not appear fluid overloaded on exam. At this time will check labs including BMP and BNP. Will check Holter monitor to assess for arrhythmia, significant bradycardia, heart block. If Holter monitor is negative and symptoms persist then will consider cardiac stress test. Cardiology follow-up 1 month, sooner if needed. (2) (HFpEF) heart failure with preserved ejection fraction: Code(s): I50.30 - Unspecified diastolic (congestive) heart failure Category: Medical Plan: As above (3) Labile blood pressure: Code(s): R09.89 - Other specified symptoms and signs involving the circulatory and respiratory systems Category: Medical Plan: Home blood pressures reviewed, no significant hypotension recently. Blood pressure mildly elevated today at 140/52. (4) Tricuspid valve regurgitation, nonrheumatic: Code(s): I36.1 - Nonrheumatic tricuspid (valve) insufficiency Category: Medical Plan: Last echo shows mild tricuspid regurgitation -not contributing to her symptoms. Plan I discussed with the patient the likely presence of intermittently symptomatic bradycardia which has been suggested by low heart rate readings. We agreed to further assess this with a portable heart monitor to capture more accurate and continuous data regarding the heart rate and rhythm. Given the patient's past subarachnoid hemorrhage, it remains crucial to monitor renal function due to the nephrotoxic potential of antihypertensive therapies, particularly valsartan. If renal dysfunction is confirmed, we will consider adjusting or reducing the dose. Balance of risks and benefits was emphasized, particularly concerning current symptoms like chest heaviness and dizziness. The patient understands the importance of these evaluations and the value of hydration, and is aware of potential impacts of elevated ambient temperature on her condition. Orders: Orders ECG 3 day holter monitor Today R00.1 - Bradycardia, unspecified Basic Metabolic Panel Today I50.30 - Unspecified diastolic (congestive) heart failure B Type Natriuretic Peptide Today I50.30 - Unspecified diastolic (congestive) heart failure Patient Instructions: - Use heart monitor as instructed for heart rate assessment. - Proceed with the scheduled lab work to re-evaluate kidney function. - Maintain adequate hydration, aiming for at least 64 ounces of fluid intake per day. - Contact us if increased dizziness, chest pain, or breathing issues develop and ED care if needed. - Follow up as planned for review of heart monitor and kidney test results. Patient was informed and verbally consented to the use of an ambient scribe for clinic note documentation during this visit. Visit time spent on chart review, interview, assessment, orders, documentation. Coding Level of Care Code Est Pt Level 4 (06404) Complex EM visit Add On G2211 Diagnoses SOB (shortness of breath) on exertion R06.02 (HFpEF) heart failure with preserved ejection fraction I50.30 Labile blood pressure R09.89 Tricuspid valve regurgitation, nonrheumatic I36.1 CPT Codes EKG - CPT: 94442-[id number], Complete ([id number]) Time Spent (min) 32
== END 2024-09-29 08:50 | disposition home or self-care (01) ==
LOC: HO.HCS 08:04
PROVIDERS: PCP Internal Medicine; Visit Provider Nurse Practitioner Family
DX: R06.02 Shortness of breath (principal); I50.30 Unspecified diastolic (congestive) heart failure; R09.89 Other specified symptoms and signs involving the circulatory and respiratory systems; I36.1 Nonrheumatic tricuspid (valve) insufficiency
CPT/HCPCS: 93010; 99214; G2211

== ENCOUNTER → 2024-09-29 08:03 | Outpatient (BNVA) | payer MEDICARE, OTHER, SELFPAY | PROVIDERS: PCP Internal Medicine; Visit Provider Nurse Practitioner Family | DX: R06.02 Shortness of breath (principal); R09.89 Other specified symptoms and signs involving the circulatory and respiratory systems; I50.30 Unspecified diastolic (congestive) heart failure; I36.1 Nonrheumatic tricuspid (valve) insufficiency | CPT/HCPCS: 93005; 93242; 99212 ==

== ENCOUNTER → 2024-09-29 09:30 | Outpatient (REF) | payer MEDICARE, OTHER, SELFPAY | LOC: HO.CARD 09:30 | PROVIDERS: Visit Provider Nurse Practitioner Family | DX: R00.1 Bradycardia, unspecified (principal) | CPT/HCPCS: 93242 ==

== ENCOUNTER 2024-10-02 09:45 | Outpatient (REF) | payer MEDICARE, OTHER, SELFPAY ==
--- OUTSIDE RECORDS SUMMARY | 2024-10-02 10:29 | XMS_ITS | Encounter Summary ---
Author Organization [facility] Address [address] [place] [address] Care Team Providers Care Salesforce Business Analyst Name Role Phone Margaret Lynn MD Primary Care Provider [phone] Encounter Details Date Type Department Care Team (Late st Contact Info) Description 05/15/2024 Telephone Gastroenterology - [address] [place] [address] Elma Clark MA Social History [...] pt.no orders in the systeme, appt today..needs gfr/bun/creatine.fax#[phone] documented in this encounter Plan of Treatment Not on file documented as of this encounter Visit Diagnoses Diagnosis Epigastric pain- Primary Abdominal pain, epigastric Irritable bowel syndrome, unspecified type Chronic calcific pancreatitis (CMS/HCC V24, CMS/HCC V28) documented in this encounter Care Teams Salesforce Business Analyst Relationship Specialty Start Date End Date Margaret Lynn MD [address] [place] [address] [place] [address] PCP - General Internal Medicine 03/13/24 documented as of this encounter
[2024-10-02 11:11] LABS: Anion Gap 14 (12-20); Blood Urea Nitrogen 39 mg/dL (9-16); Calcium 9.7 mg/dL (8.4-10.2); Carbon Dioxide 26 mmol/L (22-29); Chloride 104 mmol/L (96-108); Estimated Glomerular Filt Rate 37; Glucose Random 100 mg/dL (60-115); Sodium 139 mmol/L (135-145)
[2024-10-02 11:14] LABS: B Type Natriuretic Peptide 140 pg/mL (<100)
== END 2024-10-02 09:46 | disposition home or self-care (01) ==
LOC: HO.LAB 09:45
PROVIDERS: PCP Internal Medicine; Visit Provider Nurse Practitioner Family
DX: I50.30 Unspecified diastolic (congestive) heart failure (principal)
CPT/HCPCS: 36415; 80048; 83880

== ENCOUNTER 2024-11-23 14:21 | Outpatient (AMB) | payer MEDICARE, SELFPAY ==
--- NOTE | 2024-11-23 14:29 | MHC.OFFVIS ---
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 RXN - ? AFFECTED WBCS Medication List - Last Reconciled 11/23/24 by Benson Rodriguez MD adalimumab (Humira Pen) mg subcut cholecalciferol (vitamin D3) 25 mcg PO DAILY cyanocobalamin (vitamin B-12) (Vitamin B-12) 1,000 mcg PO DAILY empagliflozin (Jardiance) 10 mg PO DAILY furosemide (Lasix) 20 mg PO Q OTHER DAY 90 days hydralazine 10 mg PO ONCE PRN labetalol 100 mg PO BID [id number]-dxjaqgk 12,000-38,000 -60,000 unit (Creon) 1 cap PO QID omeprazole 20 mg PO DAILY rosuvastatin 20 mg PO DAILY salsalate 1,000 mg PO BID spironolactone 25 mg PO DAILY valsartan 80 mg PO DAILY HPI Comments Details: Natasha comes for follow-up. She is accompanied by her daughter. She continues to have intermittent episodes of lightheadedness usually when she brie over, she has a new puppy dog now for which she has to poor many times. She gets lightheaded at that time. She does not drink enough water. Her blood pressure including systolic blood pressure in the morning can be in 1 teens. She has not had any low blood pressures. No syncopal episodes. Other blood pressures has been mostly in the 115-120 range. She does not measure blood pressure at nighttime. She takes all her medications. Continues to have this intermittent symptoms of fluttering associated with some tightness and dizziness. She did undergo Holter monitor because of reported slow heart rate which shows overall average heart rate in his 70s with frequent PACs. Most likely spurious bradycardia due to PACs recorded by her blood pressure monitor. [facility] Medical History Subarachnoid hemorrhage Tricuspid valve regurgitation, nonrheumatic Orthostatic hypotension dysautonomic syndrome Surgical History Hx of cardiac cath Family History Father CVD (cardiovascular disease) Mother CVD (cardiovascular disease) Review of Systems Const Denies chills, Denies fatigue, Denies fever(s), Denies frequent falls, Denies weakness, Denies weight gain and Denies weight loss ENT Denies dizziness Card Denies chest pain, Denies leg edema, Denies lightheadedness, Denies palpitations, Denies dyspnea, Denies dyspnea on exertion, Denies orthopnea and Denies other (loss of consciousness) Resp Denies cough, Denies dyspnea and Denies dyspnea on exertion GI Denies hematochezia and Denies change in stool character Musc Denies abnormal gait, Denies muscle weakness, Denies numbness, Denies radiating pain into limb and Denies tingling Neuro Denies abnormal gait, Denies dizziness, Denies frequent falls, Denies numbness, Denies tingling and Denies weakness Endo Denies fatigue and Denies palpitations Physical Exam Vital Signs: Last Vital Signs Pulse 83 11/23/24 14:30 BP 140/72 H 11/23/24 14:30 BMI result Body Mass Index 20.8 BP recheck done by me, sitting 118/48, standing 98/46 Const General: cooperative, healthy appearing, comfortable and no acute distress Orientation/consciousness: patient oriented x3 Neck Neck: Yes normal visual inspection Resp Effort & Inspection: normal respiratory effort Auscultation: clear to auscultation bilaterally, no crackles, no rales, no rhonchi and no wheezes Cardio Jugular venous distension: no JVD Rate: regular rate Rhythm: regular rhythm Heart sounds: S1 normal heart sound present, S2 normal heart sound present, no murmurs and no rubs Neuro General: patient oriented x3 Extrem General: Yes normal to inspection Psych Appearance: grossly normal Mental Status: mental status grossly normal Speech and movement: Normal speech and movement present Assessment & Plan Assessment & Plan (1) (HFpEF) heart failure with preserved ejection fraction: Code(s): I50.30 - Unspecified diastolic (congestive) heart failure Category: Medical Plan: Heart failure preserved ejection fraction, clinically euvolemic and well compensated current diuretic dose. Continue the same. Importance of good blood pressure control was discussed. Encouraged to maintain activity level as tolerated. Additional diuretics as need be. Daily weight monitoring avoidance salt loading was discussed. She understands and agrees. (2) Orthostatic hypotension dysautonomic syndrome: Code(s): I95.1 - Orthostatic hypotension Category: Medical Plan: Significantly labile blood pressure with dysautonomia syndrome. Difficult control blood pressure. At this point time continue current regimen which has led to good blood pressure control and avoidance of hypertensive urgency. She does have orthostatic lightheadedness symptoms and this was discussed with her. Advised to avoid repeated stooping over posture to avoid symptoms. Advised to increase her oral fluid intake without increasing much of the salt intake. Continue monitor blood pressure various times in the day. (3) PAC (premature atrial contraction): Code(s): I49.1 - Atrial premature depolarization Category: Medical Plan: Frequent PACs most likely symptoms for spuriously low heart rate detected by her machine and also symptoms of intermittent fluttering in his chest. This puts her at high risk of developing atrial fibrillation and advised to call us if she has any significantly prolonged fast heart rate and/or come to the emergency room. No specific pharmacotherapy is discussed. Avoidance of stimulants was discussed. Stress mitigation strategies was discussed. Will follow up in the clinic in 6 months time, sooner p.r.n.. Thank you for allowing me to partake in her care Coding Level of Care Code Est Pt Level 4 (12833) Complex EM visit Add On G2211 Diagnoses (HFpEF) heart failure with preserved ejection fraction I50.30 Orthostatic hypotension dysautonomic syndrome I95.1 PAC (premature atrial contraction) I49.1
[2024-11-23 14:30] VITALS: BP 140/72; PULSE 83; BMI 20.8
--- OUTSIDE RECORDS SUMMARY | 2024-11-23 14:32 | XMS_ITS | Encounter Summary ---
Author Organization [facility] Address [address] [place] [address] Care Team Providers Care Engine Dispatcher Name Role Phone Margaret Lynn MD Primary Care Provider [phone] Encounter Details Date Type Department Care Team (Late st Contact Info) Description 05/15/2024 Telephone Gastroenterology - [address] [place] [address] Elma Clark MA Social History [...] pt.no orders in the systeme, appt today..needs gfr/bun/creatine.fax#[phone] documented in this encounter Plan of Treatment Not on file documented as of this encounter Visit Diagnoses Diagnosis Epigastric pain- Primary Abdominal pain, epigastric Irritable bowel syndrome, unspecified type Chronic calcific pancreatitis (CMS/HCC V24, CMS/HCC V28) documented in this encounter Care Teams Engine Dispatcher Relationship Specialty Start Date End Date Margaret Lynn MD [address] [place] [address] [place] [address] PCP - General Internal Medicine 03/13/24 documented as of this encounter
== END 2024-11-23 14:53 | disposition home or self-care (01) ==
LOC: HO.HCS 14:22
PROVIDERS: PCP Internal Medicine; Visit Provider Internal Medicine Cardiovascular Disease
DX: I50.30 Unspecified diastolic (congestive) heart failure (principal); I95.1 Orthostatic hypotension; I49.1 Atrial premature depolarization
CPT/HCPCS: 99214; G2211

== ENCOUNTER → 2024-11-23 14:21 | Outpatient (BNVA) | payer MEDICARE, SELFPAY | PROVIDERS: PCP Internal Medicine; Visit Provider Internal Medicine Cardiovascular Disease | DX: I95.1 Orthostatic hypotension (principal); I50.30 Unspecified diastolic (congestive) heart failure; I49.1 Atrial premature depolarization | CPT/HCPCS: 99212 ==

== ENCOUNTER 2025-02-08 10:43 | Outpatient (REF) | payer MEDICARE, OTHER, SELFPAY ==
--- OUTSIDE RECORDS SUMMARY | 2025-02-08 13:29 | XMS_ITS | Clinical Summary ---
Author Organization [facility] [address] [facility] Address [address] [place] [address] Phone Care Team Providers Care Talent Acquisition Program Manager Name Role Phone Margaret Lynn MD Primary Care Provider [phone] Allergies Active Allergy Reactions Criticality Noted Date Comments Sulfasalazine 04/21/2024 Medications valsartan (DIOVAN) 80 mg tablet 4 Active spironolactone (ALDACTONE) 25 mg tablet Take [...] by mouth 1 (one) time each day. 4 Active labetaloL (NORMODYNE) 100 mg tablet Take 1 tablet (100 mg total) by mouth. 3 Active furosemide (LASIX) 20 mg tablet TAKE [...] by mouth 1 (one) time each day. 3 Active cholecalciferol (VITAMIN D-3) 25 mcg (1,000 unit) tablet Take 1 tablet (1,000 Units total) by mouth 1 (one) time each day. 3 Active Humira Pen 40 mg/0.8 mL pen 8 Active Active Problems Problem Noted Date Diagnosed Date Hx of colonic polyps 04/18/2024 Chronic calcific pancreatitis ([facility] V24, [facility]/ [facility] V28) 04/18/2024 Diverticulosis of duodenum 04/18/2024 Irritable bowel syndrome with diarrhea 4 Gastroesophageal reflux disease without esophagi tis 04/18/2024 Social History Tobacco Use Types Packs/Day Years Used Date Smoking Tobacco: Never Assessed Comments Unknown Sex and Gender Information Value Date Recorded Sex Assigned at Not on file Legal Sex Female 6:20 AM EST Gender Identity Not on file Sexual Orientation Not on file Last Filed Vital Signs [...] DTaP,Tdap,and Td Vaccines (1 - Tdap) 1959 Pneumococcal Vaccine: 50+ Years (1 of 1 - PCV) 12/18/1991 Zoster Vaccines (1 of 2) 12/18/1991 RSV Immunization Adult Patients (1 - 1-dose 75+ series) 2016 Falls Risk Assessment 03/29/2022 Medicare Annual Wellness Visit 03/29/2022 Osteoporosis Screening (Bone Density Screening) 03/29/2022 Social Influencers of Health Screening 03/29/2022 Depression Screening 04/26/2024 COVID-19 Vaccine (3 - 2024-2 6 season) 2024 06/25/2020, 06/04/2020 Influenza Vaccine (#1) 2024 HIB Vaccines Aged Out No longer eligi [...] patient's age to complete this topic Meningococcal B Vaccine Aged Out No l onger eligible based on patient's age to complete this topic RSV Immunization Patients Under 20 months Aged Out No longer eligible b ased on patient's age to complete this topic Varicella Vaccines Aged Out No longer eligible based on patient's age to complete this topic Insurance MEDICARE [facility] Care Teams Talent Acquisition Program Manager Relationship Specialty Start Date End Date Margaret Lynn MD [address] [place] [address] [place] [address] PCP - General Internal Medicine 03/13/24
--- OUTSIDE RECORDS SUMMARY | 2025-02-08 13:29 | XMS_ITS | Encounter Summary ---
Author Organization [facility] Address [address] [place] [address] Care Team Providers Care Inpatient Services Rn Name Role Phone Margaret Lynn MD Primary Care Provider [phone] Encounter Details Date Type Department Care Team (Late st Contact Info) Description 05/15/2024 Telephone Gastroenterology - [address] [place] [address] Elma Clark MA Social History [...] pt.no orders in the systeme, appt today..needs gfr/bun/creatine.fax#[phone] documented in this encounter Plan of Treatment Not on file documented as of this encounter Visit Diagnoses Diagnosis Epigastric pain- Primary Abdominal pain, epigastric Irritable bowel syndrome, unspecified type Chronic calcific pancreatitis (CMS/HCC V24, CMS/HCC V28) documented in this encounter Care Teams Inpatient Services Rn Relationship Specialty Start Date End Date Margaret Lynn MD [address] [place] [address] [place] [address] PCP - General Internal Medicine 03/13/24 documented as of this encounter
[2025-02-08 14:14] LABS: Alanine Aminotransferase 21 U/L (0-31); Albumin Level 3.7 g/dL (3.5-5.0); Alkaline Phosphatase 53 U/L (39-117); Anion Gap 13 (12-20); Aspartate Amino Transferase 27 U/L (5-31); Blood Urea Nitrogen 26 mg/dL (9-16); Calcium 9.1 mg/dL (8.4-10.2); Carbon Dioxide 25 mmol/L (22-29); Chloride 108 mmol/L (96-108); Cholesterol 138 mg/dL (<200); Estimated Glomerular Filt Rate 34; HDL Cholesterol 54 mg/dL (>40); Potassium 4.8 mmol/L (3.3-5.1); Sodium 141 mmol/L (135-145); Total Protein 6.5 g/dL (6.5-8.0); Triglycerides 63 mg/dL (<150)
== END 2025-02-08 10:44 | disposition home or self-care (01) ==
LOC: HO.10HDL 10:43
PROVIDERS: Visit Provider Internal Medicine
DX: E78.00 Pure hypercholesterolemia, unspecified (principal); I11.0 Hypertensive heart disease with heart failure; I50.42 Chronic combined systolic (congestive) and diastolic (congestive) heart failure; M06.9 Rheumatoid arthritis, unspecified
CPT/HCPCS: 36415; 80053; 80061